=== PATIENT | female | born 1945 | race Caucasian/White ===

== ENCOUNTER 2019-07-28 15:31 | Outpatient (CLI) | payer MEDICARE, MEDICAID, SELFPAY ==
--- NOTE | 2019-07-28 15:45 | USCV_ITS ---
Yessi Ramirez Age: 73 Gender: F : 1945 Exam Date: 07/28/2019 16:11 Ordering Phys: Robert Kirk DPM Technologist: Dominique Rivers Exam Location: [facility] [place] Indication: PVD HISTORY: lower extremity pain PROCEDURES: Bilaterally, the common femoral, superficial femoral, profunda femoral, popliteal, posterior tibial, greater saphenous veins, and the peroneal trunk were identified and interrogated in the standard fashion. These veins were found to be easily compressible with spontaneous blood flow. FINDINGS: Negative for DVT and superficial thrombus in all vessels visualized. CONCLUSIONS No evidence of DVT in the above-mentioned identifiable veins. Dr Jared Bucio MD [facility] (Electronically Signed) Final Date: 28 July 2019 20:32 S
== END 2019-07-28 15:32 | disposition home or self-care (01) ==
LOC: US 15:37
PROVIDERS: Family Provider Family Medicine; PCP Family Medicine; Visit Provider Podiatrist Foot & Ankle Surgery
DX: I73.9 Peripheral vascular disease, unspecified (principal)
CPT/HCPCS: 93970

== ENCOUNTER 2019-08-01 15:12 | Outpatient (CLI) | payer MEDICARE, MEDICAID, SELFPAY ==
--- NOTE | 2019-08-01 15:15 | USCV_ITS ---
Yessi Ramirez Age: 73 Gender: F : 1945 Exam Date: 08/01/2019 15:10 Ordering Phys: Robert Kirk DPM Technologist: Hero Manzanares Exam Location: [facility] [place] Indication: PVD RIGHT LEFT Brachial 182.00 mmHg Brachial 176.00 mmHg Pressure (mmHg) Waveform Pressure (mmHg) Waveform 191.00 Below Knee 195.00 PHYSIOLOGIST 122.00 208.00 DPA 1.14 Ankle/Brachial Index 0.94 117.00 Pre-Exercise Toe Pressure 0.00 0.64 Pre-Exercise Toe/Brachial Index 0.00 FINDINGS Normal resting MEERA on the right side Near normal resting MEERA on the left side Slightly diminished resting TBI on the right side No Doppler flow signals in the left big toe CONCLUSIONS Features of mild peripheral artery disease possibly involving the distal vessels on the right side. Features of mild to moderate infrapopliteal disease with possible total occlusion of the digital artery to the big toe on the left side Dr Jared Bucio MD [facility] (Electronically Signed) Final Date: 02 August 2019 08:59 S
== END 2019-08-01 15:13 | disposition home or self-care (01) ==
LOC: US 15:14
PROVIDERS: Family Provider Family Medicine; PCP Family Medicine; Visit Provider Podiatrist Foot & Ankle Surgery
DX: I73.9 Peripheral vascular disease, unspecified (principal)
CPT/HCPCS: 93923

== ENCOUNTER → 2019-09-14 13:03 | Outpatient (BNVA) | payer MEDICARE, MEDICAID, SELFPAY | PROVIDERS: Family Provider Family Medicine; PCP Family Medicine; Visit Provider Specialist | DX: M17.0 Bilateral primary osteoarthritis of knee; E66.01 Morbid (severe) obesity due to excess calories; Z68.41 Body mass index [BMI] 40.0-44.9, adult; M25.561 Pain in right knee; M25.562 Pain in left knee | CPT/HCPCS: 73560; 73565 ==

== ENCOUNTER → 2020-05-03 11:42 | Outpatient (BNVA) | payer MEDICARE, MEDICAID, SELFPAY | PROVIDERS: Family Provider Family Medicine; PCP Family Medicine; Visit Provider Specialist | DX: M17.11 Unilateral primary osteoarthritis, right knee (principal); M17.12 Unilateral primary osteoarthritis, left knee | CPT/HCPCS: 73560; 73565 ==

== ENCOUNTER 2020-06-12 10:35 | Outpatient (CLI) | payer MEDICARE, MEDICAID, SELFPAY ==
--- NOTE | 2020-06-12 10:45 | ECG_ITS ---
[facility] Test Date: 2020-06-12 Pat Name: Yessi Ramirez Department: Room: Gender: Female Communication Professor: : 1945 Requested By: Arnie Whitehead Order Number: [id number] Ashely MD: Jared Bucio M.D. Measurements Intervals [place] Rate: 57 P: 25 VT: 194 QRS: -12 QRSD: 97 T: 53 QT: 416 QTc: 407 Interpretive Statements SINUS BRADYCARDIA No previous ECG available for comparison Electronically Signed On 06-13-2020 0:02:08 [employer]ING [employer]SULTANT by Jared Bucio M.D. [email or web address]
[2020-06-12 10:46] VITALS: BMI 38.3
[2020-06-12 10:48] LABS: Add Urine Microscopic? NO
[2020-06-12 11:04] LABS: Bilirubin Urine Neg (Negative); Blood Urine Neg (Negative); Glucose Urine UA Norm (Normal); Ketones Urine Negative (Negative); Leukocyte Esterase Urine Negative (Negative); Nitrate Urine Negative (Negative); Protein Urine Neg (Negative); Specific Gravity, Urine 1.005 (1.005-1.030); Sulfosalicylic Acid Urine Negative (Negative); Urine Appearance Clear (CLEAR); Urine Color Colorless (Yellow); Urobilinogen Urine Norm (Negative); pH Urine 8 (5-7)
[2020-06-12 11:26] LABS: Basophils % 0.4 %; Eosinophils # 0.1 10^3/uL (0.0-0.8); Eosinophils % 0.9 %; Hematocrit 45.6 % (37.0-47.0); Hemoglobin 14.3 g/dL (11.5-15.3); Lymphocytes # 2.2 10^3/uL (0.8-4.8); Mean Corpuscular HGB Conc 31.4 g/dL (30.0-36.0); Mean Corpuscular Hemoglobin 29.7 pg (28.0-34.0); Mean Corpuscular Volume 94.6 fL (81-99); Mean Platelet Volume 8.9 fL (7.4-10.4); Monocytes # 0.6 10^3/uL (0.2-0.9); Monocytes % 5.3 %; Neutrophils # 7.68 10^3/uL (1.8-7.7); Nucleated Red Blood Cells % 0 %; Platelet Count 420 10^3/cmm (130-400); Red Blood Count 4.82 10^6/uL (4.1-5.3); Red Cell Distribution Width 14.6 % (12.1-15.1); White Blood Count 10.7 10^3/uL (4.0-10.0)
[2020-06-12 11:56] LABS: Alanine Aminotransferase 16 U/L (0-33); Albumin Level 4.3 g/dL (3.5-5.2); Alkaline Phosphatase 119 IU/L (35-105); Anion Gap 13.2 (5-19); Aspartate Amino Transferase 17 U/L (0-32); Blood Urea Nitrogen 13 mg/dL (8-23); Calcium 9.8 mg/dL (8.5-10.5); Carbon Dioxide 30 mmol/L (22-29); Chloride 98 mmol/L (98-107); Globulin 3.7 g/dL (1.3-4.6); Glucose 154 mg/dL (65-115); Osmolality Calculated 287 mOsm/kg (285-295); Potassium 4.2 mmol/L (3.5-5.1); Sodium 137 mmol/L (136-145); Total Bilirubin 0.6 mg/dL (0.15-1.2)
--- NOTE | 2020-06-12 13:16 | P.ANESASSM_ITS ---
Pre-Anesthetic Assessment Pre-Anesthetic Assessment: Height/Weight: Height 1.5 m Weight 86.183 kg Proposed Procedure: Operation Date: 06/19/20 07:00 Proposed Procedures p left Total Knee Arthroplasty 89670 m17.10(Left) - Izzy Beltran MD Was Beta Venessa taken within 24 hours: N/A Social: Social History: No alcohol and No tobacco Airway: Submandibular: WNL Cervical ROM: WNL MP: 2 Dentition: False Pulmonary: Pulmonary: Asthma CV/HEM: CV/HEM: HTN : : None reported Hepatic: Hepatic: None reported GI: GI: None reported Metabolic: Metabolic: DM and Morbid obesity Musc/skel: Musc/skel: Fibromyalgia and OA/DJD Neuropsych: Neuropsych: None reported Anesthetic Plan: ASA status: 3 Anesthesia: Regional (specify below) Other: SAB and adductor blk Risk of > 500 ml blood loss (7ml/kg in children): No PFSH Anesthesia PFSH: Medical History Diabetes mellitus Hx of carpal tunnel syndrome Long-term current use of opiate analgesic Pain management contract signed Family History Brother Diabetes Other Cancer Denies family history of Stroke Social History Smoking and tobacco status: never smoked Alcohol intake: never Household members: other Details: Roomate Marital status: Single Current occupational status: disabled Data Anesthesia CBC & Chem 7: 06/12/20 11:15 06/12/20 11:15 Other Labs: Laboratory Results - last 48 hr 06/12/20 06/12/20 06/12/20 10:45 11:15 11:15 WBC 10.7 H RBC 4.82 Hgb 14.3 Hct 45.6 MCV 94.6 MCH 29.7 MCHC 31.4 RDW 14.6 Plt Count 420 H MPV 8.9 Neut % (Auto) 72.0 Lymph % (Auto) 21.0 Hayes % (Auto) 5.3 Eos % (Auto) 0.9 Baso % (Auto) 0.4 Neut # (Auto) 7.68 Lymph # (Auto) 2.2 Hayes # (Auto) 0.6 Eos # (Auto) 0.1 Baso # (Auto) 0.0 Nucleated RBC % (auto) 0 Nucleated RBCs # 0.0 Sodium 137 Potassium 4.2 Chloride 98 Carbon Dioxide 30 H Anion Gap 13.2 BUN 13 Creatinine 0.5 GFR Calculation Not Reportable Glucose 154 H Calculated Osmolality 287 Calcium 9.8 Total Bilirubin 0.6 AST 17 ALT 16 Alkaline Phosphatase 119 H Total Protein 8.0 Albumin 4.3 Globulin 3.7 Urine Color Colorless Urine Appearance Clear Urine pH 8 H Ur Specific [place] 1.005 Urine Protein Neg Urine Glucose (UA) Norm Urine Ketones Negative Urine Blood Neg Urine Nitrate Negative Urine Bilirubin Neg Prot Sulfosalicylic Acd Negative Urine Urobilinogen Norm Ur Leukocyte Esterase Negative Cardiac Studies: No Data to Display
== END 2020-06-12 10:36 | disposition home or self-care (01) ==
LOC: OPS 03-27 14:52
PROVIDERS: PCP Family Medicine; Visit Provider Specialist
DX: Z01.818 Encounter for other preprocedural examination (principal)
CPT/HCPCS: 36415; 80053; 81003; 85025; 93005

== ENCOUNTER → 2020-10-01 14:38 | Outpatient (BNVA) | payer MEDICARE, MEDICAID, SELFPAY | PROVIDERS: PCP Family Medicine; Visit Provider Specialist | DX: M17.12 Unilateral primary osteoarthritis, left knee (principal); M17.11 Unilateral primary osteoarthritis, right knee | CPT/HCPCS: 73560; 73565 ==

== ENCOUNTER → 2020-10-04 14:57 | Outpatient (BNVA) | payer MEDICARE, MEDICAID, SELFPAY | PROVIDERS: PCP Family Medicine; Visit Provider Specialist | DX: Z01.812 Encounter for preprocedural laboratory examination (principal); Z20.822 Contact with and (suspected) exposure to COVID-19 | CPT/HCPCS: 87635 ==

== ENCOUNTER → 2020-10-29 12:02 | Outpatient (BNVA) | payer MEDICARE, MEDICAID, SELFPAY | PROVIDERS: PCP Family Medicine; Visit Provider Specialist | DX: Z01.812 Encounter for preprocedural laboratory examination (principal); Z20.822 Contact with and (suspected) exposure to COVID-19 | CPT/HCPCS: 87635 ==

== ENCOUNTER → 2020-11-09 15:07 | Outpatient (BNVA) | payer MEDICARE, MEDICAID, SELFPAY | PROVIDERS: PCP Family Medicine; Visit Provider Specialist | DX: Z01.812 Encounter for preprocedural laboratory examination (principal); Z20.822 Contact with and (suspected) exposure to COVID-19 | CPT/HCPCS: 87635 ==

== ENCOUNTER 2020-11-13 13:47 | Inpatient (IN) | payer MEDICAID, SELFPAY ==
[2020-11-05 11:54] VITALS: BMI 39.6
[2020-11-05 12:26] LABS: Add Urine Microscopic? NO; Charge for UA Resulting for Rev
--- NOTE | 2020-11-05 12:26 | ANES.PREANE2 ---
Pre-Anesthetic Assessment Pre-Anesthetic Assessment: Height/Weight: Height 1.5 m Weight 88.904 kg Preop Diagnosis: Left Knee degenerative osteoarthritis Proposed Procedure: Operation Date: 11/13/20 10:25 Proposed Procedures p Total Knee Arthroplasty 72116 M17.10(Left) - Izzy Beltran MD Familial anesthetic complications: None Social: Social History: No alcohol and No tobacco Exam: Pre-Anes Outpt Exam: alert, oriented x 3, clear to auscultation bilaterally and regular rate & rhythm Airway: Cervical ROM: WNL MP: 2 Dentition: Full Pulmonary: Pulmonary: None reported CV/HEM: CV/HEM: HTN GI: GI: GERD Metabolic: Metabolic: DM and Morbid obesity Musc/skel: Musc/skel: Lower Back Pain Anesthetic Plan: Anesthesia: Regional (specify below) (adductor) Other: spinal Risk of > 500 ml blood loss (7ml/kg in children): Yes, adequate IV access and fluids planned PFSH Anesthesia PFSH: Medical History Diabetes mellitus Hx of carpal tunnel syndrome Long-term current use of opiate analgesic Pain management contract signed Family History Brother Diabetes Other Cancer Denies family history of Stroke Social History Smoking and tobacco status: never smoked Alcohol intake: never Household members: other Details: Roomate Marital status: Single Current occupational status: disabled Data Anesthesia CBC & Chem 7: 11/05/20 12:15 11/05/20 12:15 Cardiac Studies: No Data to Display
[2020-11-05 12:28] LABS: Basophils % 0.4 %; Eosinophils # 0.1 10^3/uL (0.0-0.8); Eosinophils % 0.7 %; Hematocrit 43.9 % (37.0-47.0); Hemoglobin 13.8 g/dL (11.5-15.3); Lymphocytes # 2.2 10^3/uL (0.8-4.8); Lymphocytes % 21.8 %; Mean Corpuscular HGB Conc 31.4 g/dL (30.0-36.0); Mean Corpuscular Hemoglobin 29.5 pg (28.0-34.0); Mean Corpuscular Volume 93.8 fL (81-99); Mean Platelet Volume 9.4 fL (7.4-10.4); Monocytes # 0.6 10^3/uL (0.2-0.9); Monocytes % 5.6 %; Neutrophils # 7.17 10^3/uL (1.8-7.7); Neutrophils % 71.3 %; Nucleated Red Blood Cells % 0 %; Platelet Count 398 10^3/cmm (130-400); Red Blood Count 4.68 10^6/uL (4.1-5.3); Red Cell Distribution Width 13.9 % (12.1-15.1); White Blood Count 10.1 10^3/uL (4.0-10.0)
[2020-11-05 12:31] LABS: Bilirubin Urine Neg (Negative); Blood Urine Neg (Negative); Glucose Urine UA Norm (Normal); Ketones Urine Negative (Negative); Leukocyte Esterase Urine Negative (Negative); Nitrate Urine Negative (Negative); Protein Urine Neg (Negative); Specific Gravity, Urine 1.005 (1.005-1.030); Urine Appearance Clear (CLEAR); Urine Color Yellow (Yellow); Urobilinogen Urine Norm (Negative); pH Urine 7 (5-7)
[2020-11-05 12:46] LABS: Alanine Aminotransferase 12 U/L (0-33); Albumin Level 3.9 g/dL (3.5-5.2); Alkaline Phosphatase 97 IU/L (35-105); Aspartate Amino Transferase 16 U/L (0-32); Blood Urea Nitrogen 10 mg/dL (8-23); Carbon Dioxide 29 mmol/L (22-29); Chloride 99 mmol/L (98-107); Globulin 3.7 g/dL (1.3-4.6); Glucose 126 mg/dL (65-115); Osmolality Calculated 287 mOsm/kg (285-295); Sodium 138 mmol/L (136-145); Total Bilirubin 0.6 mg/dL (0.15-1.2); Total Protein 7.6 g/dL (6.6-8.7)
[2020-11-05 12:49] LABS: Anion Gap 13.6 (5-19); Potassium 3.6 mmol/L (3.5-5.1)
[2020-11-13] VITALS (18 sets, daily range): BP systolic 96–173; BP diastolic 47–94; PULSE 52–73; RESP 16–20; TEMP 35.9–37.2; O2SAT 94–100
[2020-11-13] MEDS: sodium chloride 0.9% 1,000 ML 30 ML IV (09:20)
[2020-11-13] MEDS: acetaminophen 1,000 MG/100 ML PIGGYBACK 400 MG IV ×2 (09:20→17:29)
[2020-11-13] MEDS: ketorolac 30 mg/mL INJ IVP (09:26)
[2020-11-13 09:28] LABS: Glucose Point of Care 110 mg/dL (70-110)
--- NOTE | 2020-11-13 09:32 | W.PM.OPSUD ---
Surgery/Procedure H&P Update DATE OF PROCEDURE: November 13, 2020 DATE H&P PERFORMED: 11/05/20 H&P UPDATE INFORMATION: I have reviewed H&P completed within last 30 days, I have examined patient prior to procedure, No changes to prior documentation, Changes to prior documentation as noted here and H&P is in [facility] EMR on date indicated PREOP DIAGNOSIS: Left Knee degenerative osteoarthritis PLANNED PROCEDURE: Operation Date: 11/13/20 10:25 Proposed Procedures p Total Knee Arthroplasty 92574 M17.10(Left) - Izzy Beltran MD Related Problem List Diagnoses (1) Primary osteoarthritis of left knee:
--- NOTE | 2020-11-13 10:40 | P.ANESUD_ITS ---
Pre-Anesthetic Update Pre-Anesthetic Assessment: Date of Surgery/Procedure: 11/13/20 Preop Alley gnosis: Left Knee degenerative osteoarthritis Proposed Procedure: Operation Date: 11/13/20 10:25 Proposed Procedures p Total Knee Arthroplasty 53446 M17.10(Left) - Izzy Beltran MD Any changes to Pre-Anesthetic Assessment?: No Last Intake: Intake Last Liquid Date 11/13/20 Last Liquid Time 06:00 Last Solid Date 11/12/20 Last Solid Time 22:00 Labs Last 48hrs: Laboratory Results - last 48 hr 11/13/20 09:21 POC Glucose 110 Vitals: Temperature 97.5 F L 11/13/20 09:13 Temperature Source Temporal Artery S can 11/13/20 09:13 Pulse Rate 65 11/13/20 09:13 Pulse Rhythm 11/13/20 09:13 Pulse Strength 3+ Normal 11/13/20 09:13 Respiratory Rate 18 11/13/20 09:13 Blood Pressure 173/94 11/13/20 09:13 Blood Pressure Helga n 120 11/13/20 09:13 Pulse Oximetry 100 11/13/20 09:13 Oxygen Delivery Me thod 11/13/20 09:13 Exam: Pre-Anes Outpt Exam: alert, oriented x 3, clear to auscultation bilaterally and regular rate & rhythm Cardiac Studies: No Data to Display
[2020-11-13] MEDS: vancomycin 1,000 MG SDV 1000 MG XX (12:18)
[2020-11-13] MEDS: ceFAZolin 1,000 mg SDV 2000 MG IRRIGATION (12:19)
--- NOTE | 2020-11-13 12:41 | ANES.PROC ---
Anesthesia Procedures Procedure/Date: 11/13/20 Nerve Block ^: Nerve Block 1: Main Anesthesia: spinal anesthesia block Time Out Performed: Yes Consent: requested by attending/covering physician, from patient, risks and benefits reviewed and patient agrees to proceed Nerve block location: adductor canal (left) Anesthesia monitors applied: pulse oximetry, EKG, BP cuff and oxygen Nerve block position: supine Anesthetic Used: ropivicaine 0.5% Amount of anesthesia used (mL): 20 Ultrasound used to: recognize landmarks Nerve Stimulator Used?: No Interscalene/Femoral BLK: 4 stimuplex 21 g needle used for position and inplane approach Injection: neg aspiration of heme Patient Tolerated Procedure: well Complications: none
--- NOTE | 2020-11-13 13:57 | XRR_ITS ---
PROCEDURE INFORMATION: Exam: XR Left Knee Exam date and time: 11/13/2020 1:59 PM Age: 75 years old Clinical indication: Device placement; Joint replacement hardware; Prior surgery; Surgery date: Post-operative (0-2 days); Additional info: Status post left total knee TECHNIQUE: Imaging protocol: XR Left knee. Views: 1 or 2 views. COMPARISON: CR XR knees AP WB w BI lmt ORTH 10/01/2020 2:45 PM FINDINGS: Bones/joints: Recent total knee replacement with a vertical row skin carole. Soft tissues: Normal. Other findings: Postoperative air. XR/XR knee LT 1-2V 96286 IMPRESSION: Recent total knee replacement with a vertical row skin carole.
--- NOTE | 2020-11-13 13:59 | PM.OP ---
Operative Report Date of procedure: November 13, 2020 Pre-op Diagnosis: Left Knee degenerative osteoarthritis Post-op diagnosis: same Post-op Findings: Severe valgus deformity left knee with gross instability. Procedure Done: Left total knee arthroplasty Implants: The Nadine total knee system with a size 2 triathlon beaded posterior stabilized femur left, a triathlon titanium tibial component size 2 beaded, a triathlon X3 posterior stabilized tibial bearing insert size 2 X 11 mm and a beaded triathlon titanium asymmetric patella size 29 x 9 mm Specimens removed/disposition: None Pathology: none sent Surgeon: Izzy Beltran Chief Librarian Music Department: [facility] operating room technicians Anesthesia: MAC (With spinal and supplemental regional block, ASA 3) Estimated blood loss (mL): 50 Tourniquet time (min): 84 Tourniquet time: At 300 mmHg IV fluids (mL): 1,000 Urine output (mL): 450 Complications: None Findings: Gross instability left knee secondary to severe valgus deformity, obesity, and opposite knee with instability and valgus deformity Condition: stable Disposition: PACU (Then to floor for postoperative rehabilitation and pain management. The patient will require inpatient status) Brief History: This 75-year-old woman presents with complaints of bilateral knee pain with severe valgus deformity of bilateral knees. Additionally, she has multiple medical comorbidities including cardiac, chronic pain, and diabetes. She is obese with a BMI of 39.6%. She does suffer with deconditioning secondary to her multiple medical issues. Patient is here today for left total knee arthroplasty. At some point in the near future, she will likely require right total knee arthroplasty as she will have potential balance issues and difficulties ambulating secondary to the severe deformity in her right knee. Due to her multiple medical comorbidities, the patient will likely require nursing home on discharge and inpatient monitoring by the medical service. They were contacted following the surgical procedure. Procedure: The patient was brought to the operating theater, and after undergoing adequate spinal anesthesia with MAC and supplemented with regional block, ASA 3, the left lower extremity was prepped with Dura-Prep and draped in usual fashion following placement of a tourniquet high on the leg. The leg was then draped free. Following prepping and draping, the leg was exsanguinated, and the tourniquet was elevated to 300 mmHg for a total tourniquet time of 84 minutes. Prior to elevation of the tourniquet, but following exposure of the site of surgery, a surgical pause was performed. At the time of the surgical pause, we confirmed the site and side of surgery. Additionally, we confirmed the appropriate and timely administration of preoperative antibiotics, Ancef g. and Transexemic acid 1 g. The availability of equipment was confirmed, and the patient's identity was verbalized as well. Following the surgical pause, an exam under anesthesia demonstrated significant instability to the left knee secondary to gross valgus deformity. An incision was made centering over the patella continuing proximally and distally as necessary to allow access to the knee joint. Dissection continued through skin and soft tissues using a scalpel. Hemostasis was obtained using electrocautery. The skin incision was followed by a median parapatellar arthrotomy. The leg was extended and the patella was everted. Following this, the leg was returned to flexed position. Synovectomy was performed. There were also noted to be large osteophytes surrounding the entire distal femur. The distal femur was exposed, and a drill hole was made in this for placement of the distal femoral jig. The distal femoral jig was set at 5? of valgus. The distal femoral cutting block was then placed in appropriate position, and an carlin wing was used to confirm an appropriate amount of distal femur would be resected. The distal femoral resection was accomplished with 8 mm of bone being resected distally. After the distal femoral resection had been accomplished, the femur was measured and it measured a size 2. Medial lateral dimension also measured a size 2. A size 2 femoral cutting block was placed in position, and we were then able to accomplish the anterior, posterior and chamfer cuts. This jig was then removed and the notch guide was placed in position. With the notch guide in appropriate position, the notch was excised including resection of the anterior and posterior cruciate ligaments. This notch was to allow for the posterior stabilized femoral component. At this point, the femur was prepared and attention was directed to the proximal tibia. The posterior knee retractor was placed along with medial and lateral retractors. Further resection of the menisci was accomplished as we had better visualization. A complete meniscectomy was performed both medially and laterally with care being taken to protect the popliteus. Retractors were then placed so that the proximal tibia was well visualized. A drill hole was then made in the tibia for placement of the intramedullary guide. This guide was placed so that approximately 2 mm of bone would be resected from the deficient lateral tibial plateau. The intramedullary guide was utilized supplemented with an extramedullary guide to assure appropriate alignment for the proximal tibial resection. The proximal tibial jig was then evaluated, pinned in position, and the proximal tibial resection was accomplished without difficulty. The jig was removed, and the proximal tibia was measured. It measured a size 2. We then attempted a trial reduction with a size 2 by 9 mm insert. Osteophytes were also removed from the tibia. The femoral component was placed in position for the trial reduction, and the knee was placed through range of motion. With this, there was appropriate patellar tracking. Extension was noted to be full as well. After the knee was manipulated following the medial release, we were able to insert a size 2 x 11 mm insert. With this we had excellent varus valgus alignment and full extension. The knee was stable to varus valgus stress as well. Therefore, this was the chosen component. There was full extension and flexion without lift off and the rotation of the tibia was marked. Alignment was checked from the hip to the ankle, and this was noted to be appropriate as well. Attention was then directed to the patella which was very thin. The patella was measured with a caliper. We resected minimal patella so that we had a surface upon which to place the prosthesis, but we did not thin the patella significantly. Measurements of the patella then indicated that a size asymmetric 29 mm x 9 mm was the appropriate patellar size. We then placed the jig to drill for the 3 pegs of the press-fit patella, and these drill holes were made without incident. A trial patella was then placed, and the knee was placed through range of motion. The patella was noted to track nicely without evidence of subluxation. The femur was prepared for a press-fit femur by drilling 2 holes for the femoral pegs. All trial components were subsequently removed. The tibial tray was then pinned into position, and we broached the tibia for the stem of the tibial component. Subsequently, 4 drill holes were made for placement of the press-fit tibia. This was accomplished without difficulty. Care was taken to assure appropriate rotation of the tibia as well as appropriate position on the proximal tibia. The tibial tray was completely seated on the proximal tibia. Following broaching, the tibial guide was removed, and all surfaces were copiously irrigated. The surfaces were then dried and a bone plug was placed into the distal femur. Exparel was also injected at this point. The Tritanium tibia was impacted into position. The beaded femur was then impacted into position in a cementless fashion. The tibial insert was placed. The patella was pressed into position with a patellar clamp. The knee was irrigated with 20 mL of Betadine and 500 mL of normal saline, and this was allowed to remain in the knee for 3-4 minutes. The knee was then copiously irrigated and suctioned dry. Attention was then directed to closure. Closure was accomplished with 0 Vicryl in the fascial tissues. Following this, a combination of 0 Vicryl and 2-0 Monocryl was used in the subcutaneous tissues, and the skin was closed with skin carole. A sterile dressing was then placed consisting of Dermabond Prineo, Telfa, 4x4's, sterile soft roll, and an Eduardo wrap. The patient was returned the Recovery Room in a satisfactory condition. X-rays were obtained there. The patient will be discharged to the floor for postoperative rehabilitation and pain management. Associated Problem List Diagnoses (1) Primary osteoarthritis of left knee:
--- NOTE | 2020-11-13 14:50 | PC.NURSE ---
OR NOTE UP VIA BED WITH POLO RN AT SIDE - ALERT AND ORIENTATED - AP RRR - LUNGS CTA THROUGHOUT - ABD SOFT WITH NO DISTENTION BS + - SANDOVAL IN PLACE AND PATENT WITH CLEAR YELLOW URINE - IV PATENT VIA PUMP TO RIGHT FA - TAJ TO LEFT KNEE C/D/I WITH NO REDNESS OR DRAINAGE NOTED - PPP - CALL LIGHT WITHIN REACH - ORIENTATION TO ROOM PROVIDED PER THIS NURSE
--- NOTE | 2020-11-13 16:31 | P.CONIM_ITS ---
Providers/Reason For Consult Consulting Physician/Specialty*: orthopedic Reason for Consult*: left knee replacment, medical managament Attending Physician: Izzy Beltran MD Primary Care Provider: Kee Sanabria History of Present Illness History of Present Illness Yessi Ramirez is a 75 year old female with past medical history of iyx-szwyvnp-mayombirt type 2 diabetes mellitus, hypertension, hyperlipidemia, GERD, restless leg syndrome, who presents to [facility] for a new l eft knee replacement by Dr. Beltran. Hospitalist team was consulted due to medical management of her chronic medical problems. Patient tells me that she has type 2 diabetes mellitus, well controlled, blood pressures well controlled. No history of CAD, history of chest pain, shortness of breath. No history of smoking, history of COPD. No history of fevers, no chills, no history of pneumonia. No known exposure to COVID-19. She does tell me that she has frequent falls, which is more the reason she is having her left knee replacement, as her left knee would give out. No history of strokes. She tells me that currently she has no one to take care of her at home, her has a foot fracture. and her family friend who helps out with her is currently going on vacation Review of Systems Const: Denies: fever(s) ENMT: Denies: nasal congestion Resp: Denies: dyspnea GI: Denies: abdominal pain, nausea, vomiting, diarrhea or constipation : Denies: dysuria or urinary frequency Neuro: Denies: headache(s) Meds/Allergies Home Medications and Allergies Home Medications Medication Instructions Recorded Confirmed Last Taken Type benazepril 5 mg tablet 5 mg PO QDAY 07/12/19 11/13/20 11/13/20 06:00 History duloxetine 20 mg capsule,delayed 20 mg PO BID 07/12/19 11/13/20 11/13/20 06:00 History release sprinkle ezetimibe 10 mg tablet 10 mg PO QDAY 07/12/19 11/13/20 11/13/20 History hydrochlorothiazide 12.5 mg capsule 12.5 mg PO QAM 07/12/19 11/13/20 11/13/20 09:00 History metformin 500 mg tablet 500 mg PO BID 07/12/19 11/13/20 11/12/20 History montelukast 10 mg tablet 10 mg PO QDAY 07/12/19 11/13/20 11/13/20 06:00 History ropinirole 5 mg tablet 5 mg PO QDAY 07/12/19 11/13/20 11/13/20 History tizanidine 2 mg capsule 2 mg PO BID PRN 07/12/19 11/13/20 11/13/20 History gabapentin 300 mg capsule 600 mg PO TID cap 03/20/20 11/13/20 11/13/20 06:00 History Allergies Allergy/AdvReac Type Severity Reaction Status Date / Time diltiazem AdvReac swelling Verified 11/05/20 11:44 feet duloxetine [From Cymbalta] AdvReac HEADACHE / Verified 11/05/20 11:44 ITCHING fluticasone AdvReac CLOSED Verified 11/05/20 11:44 [From Advair Diskus] OFF HER LUNGS salmeterol AdvReac CLOSED Verified 11/05/20 11:44 [From Advair Diskus] OFF HER LUNGS Current Medications Current Medications Generic Name Dose Route Start Last Admin Trade Name Cristina PRN Reason Stop Dose Admin Mupirocin 1 applic 11/13/20 18:00 11/13/20 16:09 Mupirocin Oint 22 Gm NASAL 11/18/20 17:59 Not Given BID [facility] Protocol PFSH Acute PFSH: Medical History (Updated 11/13/20 @ 16:36 by Jonathan Murray MD) Diabetes mellitus Hx of carpal tunnel syndrome Long-term current use of opiate analgesic Pain management contract signed Family History Brother Diabetes Other Cancer Denies family history of Stroke Social History Smoking and tobacco status: never smoked Alcohol intake: never Household members: other Details: Roomate Marital status: Single Current occupational status: disabled Vitals/I&O/Wt Last Vital Signs Temp 97.7 F 11/13/20 15:30 Pulse 60 11/13/20 15:49 Resp 18 11/13/20 15:49 BP 146/66 11/13/20 15:30 Pulse Ox 99 11/13/20 15:49 06/01/21 06/01/21 06/01/21 06:59 14:59 22:59 Intake Total 150 / 150 Output Total 950 / 950 Balance -800 / -800 Physical Exam Const: COMMON NORMALS: no acute distress ORIENTATION/CONSCIOUSNESS: Yes awake, Yes oriented to person, Yes oriented to place and Yes oriented to time Resp: COMMON NORMALS: normal respiratory effort, No retractions, No use of accessory muscles and clear to auscultation bilaterally AUSCULTATION: clear to auscultation bilaterally Cardio: COMMON NORMALS: regular rate, regular rhythm, S1 normal heart sound present and S2 normal heart sound present RATE: regular rate RHYTHM: regular rhythm HEART SOUNDS: S1 normal heart sound present and S2 normal heart sound present GI: COMMON NORMALS: Normal to inspection, nondistended, normoactive bowel sounds present, Soft to palpation and non-tender PALPATION: Yes Soft to palpation : OTHER: martínez in place Extremity: COMMON NORMALS: no pedal edema NARRATIVE EXTREMITY EXAM: LLE at knee is wrapped Neuro: SENSORIUM/ORIENTATION: Yes oriented to person, Yes oriented to place and Yes oriented to time Urinary Catheter Management^: F: Cath Placed During This Visit: yes Urinary Catheter Date of Insertion: 11/13/20 Urinary Catheter Time of Insertion: 11:50 A&P Assessment and plan (1) Primary osteoarthritis of left knee: -Status post left knee arthroplasty -Pain control and anticoagulation as per orthopedic service -Martínez catheter in place -Advance diet as tolerated -Low-dose sliding scale for type 2 diabetes mellitus -Monitor blood pressures -Monitor for postoperative anemia, monitor for confusion, monitor for fevers -aspirin 325mg -full code Status: Acute (2) Obesity (BMI 35.0-39.9 without comorbidity): Status: Acute (3) Diabetes mellitus: Status: Acute (4) HTN (hypertension) with goal to be determined: Status: Acute Coding Level of Care Code Acute Pre Sales Technical Consultant for [facility] Fwd Diagnoses Primary osteoarthritis of left knee M17.12 Obesity (BMI 35.0-39.9 without comorbidity) E66.9 Diabetes mellitus E11.9 HTN (hypertension) with goal to be determined I10
--- NOTE | 2020-11-13 16:56 | ANE.PACU2 ---
Inpatient post-anesthesia follow up: Airway intact: Yes Vital signs: Temperature 97.7 F Pulse Rate 60 Respiratory Rate 18 Blood Pressure 146/66 Pulse Oximetry 99 Oxygen Delivery Me thod Room Air Oxygen Flow Rate Fraction of Inspir ed Oxygen Hydration adequate: Yes Nausea and vomiting: No Pain level: 2 Mental status: Baseline
[2020-11-13] MEDS: gabapentin 300 mg Capsule 600 MG PO ×2 (17:27→22:05)
[2020-11-13] MEDS: CELEcoxib 200 mg Capsule PO (17:27)
[2020-11-13] MEDS: sennosides-docusate Tablet 2 TAB PO (17:27)
[2020-11-13] MEDS: calcium carbonate 500 mg Chew Tablet 1000 MG PO (17:28)
[2020-11-13] MEDS: chlorhexidine gluconate 0.12% Btl 473 mL 30 ML MUCOUS MEM ×2 (17:28→22:06)
[2020-11-13 17:32] LABS: Glucose Point of Care 111 mg/dL (70-110)
[2020-11-13] MEDS: iron polysaccharide complex 150 mg Capsule PO (17:35)
[2020-11-13] MEDS: duloxetine 20 mg Capsule PO (18:05)
[2020-11-13] MEDS: oxyCODONE 5 mg IR Tab/Cap PO (18:52)
[2020-11-13 20:50] LABS: Glucose Point of Care 164 mg/dL (70-110)
[2020-11-14] VITALS (9 sets, daily range): BP systolic 120–167; BP diastolic 65–81; PULSE 70–96; RESP 16–18; TEMP 36.6–37.5; O2SAT 94–96
[2020-11-14] MEDS: acetaminophen 1,000 MG/100 ML PIGGYBACK 400 MG IV (00:34)
[2020-11-14 02:42] LABS: Basophils % 0.3 %; Eosinophils # 0.1 10^3/uL (0.0-0.8); Hematocrit 33.2 % (37.0-47.0); Hemoglobin 10.5 g/dL (11.5-15.3); Lymphocytes # 1.2 10^3/uL (0.8-4.8); Lymphocytes % 11.8 %; Mean Corpuscular HGB Conc 31.6 g/dL (30.0-36.0); Mean Corpuscular Hemoglobin 29.2 pg (28.0-34.0); Mean Corpuscular Volume 92.2 fL (81-99); Mean Platelet Volume 9.5 fL (7.4-10.4); Monocytes # 0.6 10^3/uL (0.2-0.9); Monocytes % 6.1 %; Neutrophils # 8.07 10^3/uL (1.8-7.7); Neutrophils % 80.4 %; Nucleated Red Blood Cells % 0 %; Platelet Count 299 10^3/cmm (130-400); Red Cell Distribution Width 13.7 % (12.1-15.1)
[2020-11-14 03:06] LABS: Anion Gap 12.1 (5-19); Blood Urea Nitrogen 14 mg/dL (8-23); Calcium 8.5 mg/dL (8.5-10.5); Carbon Dioxide 26 mmol/L (22-29); Chloride 102 mmol/L (98-107); Glucose 167 mg/dL (65-115); Osmolality Calculated 288 mOsm/kg (285-295); Potassium 3.1 mmol/L (3.5-5.1); Sodium 137 mmol/L (136-145)
[2020-11-14] MEDS: oxyCODONE 5 mg IR Tab/Cap PO ×3 (03:10→14:41)
[2020-11-14] MEDS: hydroCHLOROthiazide 25 mg Tablet 12.5 MG PO (06:11)
[2020-11-14] MEDS: CELEcoxib 200 mg Capsule PO ×2 (06:11→18:16)
[2020-11-14 06:54] LABS: Glucose Point of Care 173 mg/dL (70-110)
[2020-11-14] MEDS: calcium carbonate 500 mg Chew Tablet 1000 MG PO ×2 (08:01→18:39)
[2020-11-14] MEDS: iron polysaccharide complex 150 mg Capsule PO ×2 (08:01→18:16)
[2020-11-14] MEDS: sennosides-docusate Tablet 2 TAB PO ×2 (08:01→18:16)
[2020-11-14] MEDS: ezetimibe 10 mg Tablet PO (08:01)
[2020-11-14] MEDS: montelukast sodium 10 mg Tablet PO (08:01)
[2020-11-14] MEDS: gabapentin 300 mg Capsule 600 MG PO ×3 (08:02→20:59)
[2020-11-14] MEDS: duloxetine 20 mg Capsule PO ×2 (08:02→18:39)
[2020-11-14] MEDS: lisinopril 5 mg Tablet PO (08:02)
[2020-11-14] MEDS: cholecalciferol (vitamin D3) 1,000 unit Tablet 1000 UNIT PO (08:02)
[2020-11-14] MEDS: multivitamin therapeutic Tablet 1 TAB PO (08:02)
[2020-11-14] MEDS: aspirin 325 mg EC Tablet PO (08:02)
[2020-11-14] MEDS: chlorhexidine gluconate 0.12% Btl 473 mL 30 ML MUCOUS MEM ×4 (08:03→21:01)
[2020-11-14] MEDS: acetaminophen 1,000 MG/100 ML PIGGYBACK 100 MG IV (08:03)
--- NOTE | 2020-11-14 10:22 | PC.CHAP ---
Pastoral Care Encounter/Spiritual Assessment Type of Contact [] Declined furnace erector visit [] Patient/Family/Request visit [] Outpatient visit [] Follow-up visit [] Physician referral [] Code/Alert [x] Routine visit [] Staff referral [] Actively dying [] Patient sleeping [] Family support [] [] Out of room [] Palliative care [] [] Receiving care in room [] Pre-surgical visit [] Trauma [] Long length of stay [] ICU visit [] Other: Relational/Emotional Strength [x] Patient feels connected with others/family/visitors/staff [] Distress [] Loneliness/isolation [] Abandonment Spirituality of Patient [x] Person of Lakisha x [] Attends Faith of their Lakisha [] Believes in Prayer [] Reads Bible or Mandaen materials [] There are Spiritual issues to be addressed Industrial Psychologist Interventions [x] Prayer [x] Active listening [x] Non-anxious presence [] Spiritual/emotional support [] Crisis/trauma care [] Spiritual counseling [] Bereavement support [] Provided bereavement packet [] Provided Bible/devotional materials [] Provided toy/stuffed animal, coloring book to patient or family member [] Provided Communion [] Anointing/Lithia [] Salvation [] Completed spiritual assessment [] Other: Impact on Illness or Injury [] Angry [] Fearful [] Anxious [] Often cries [] Exhaustion [] Unable to work [] Unable to attend yazdanism [] Unable to walk/stand [] Unable to read [] Unable to drive [] Unable to eat/drink [] Unable to sleep [] Unable to be with family [] Patient intubated [] Other: Summary Time spent with patient 10 min
[2020-11-14] MEDS: potassium chloride ER 20 mEq Tablet 40 MEQ PO (11:05)
--- NOTE | 2020-11-14 14:21 | P.PN_ITS ---
Subjective Subjective: Interval history: Patient was seen this morning, martínez is out, she is still having left knee pain, no fever, no chills, no nausea, no vomiting. She considered going home, however, she does have deconditioning and weakness of the upper extremities which limit her ability to participate with physical therapy. Also, family has confirmed that they will not be available to assist her at home. Medications: Reviewed: Yes Vitals/I&O/Wt Last Vital Signs Temp 97.8 F 11/14/20 11:05 Pulse 82 11/14/20 11:05 Resp 16 11/14/20 11:05 BP 167/80 11/14/20 11:05 Pulse Ox 95 11/14/20 11:05 11/13/20 11/14/20 11/14/20 22:59 06:59 14:59 Intake Total 2210 / 2360 630 / 2990 120 / 120 Output Total 2100 / 3050 850 / 3900 Balance 110 / -690 -220 / -910 120 / 120 Physical Exam Const: COMMON NORMALS: no acute distress, average body habitus, patient oriented x3 and alert GENERAL APPEARANCE: cooperative and comfortable ORIENTATION/CONSCIOUSNESS: Yes awake HENMT: COMMON NORMALS: normocephalic and atraumatic HEAD & SCALP: no rmocephalic and atraumatic Eye: GENERAL EYE: appearance normal, both eyes and all related structures Chest: COMMONS NORMALS: normal inspection of the chest Resp: COMMON NORMALS: normal respiratory effort EFFORT & INSPECTION: Yes able to speak in complete sentences and Yes symmetric chest movement Extremity: LEFT LOWER EXTREMITY: Yes knee joint (Dressing is removed, wound is benign.) Left knee: Yes inspection (There is no drainage or evidence of infection.), Yes palpation (Minimal tenderness to palpation.), Yes ROM (Not evaluated.) and Yes neurovascular exam (Intact with no evidence of DVT.) Neuro: COMMON NORMALS: patient oriented x3 SENSORIUM/ORIENTATION: Yes alert Psych: COMMON NORMALS: mental status grossly normal APPEARANCE: Yes grossly normal ATTITUDE: Yes calm and Yes engaged ATTENTION/CONCENTRATION: Yes attention grossly intact Skin: COMMON NORMALS: no rashes or lesions noted GENERAL SKIN EXAM: no rashes or lesions noted Urinary Catheter Management^: F: Cath Placed During This Visit: yes, but has since been removed by the nurse Reason for Continuing Indwelling Catheter: Decision to DC Catheter Urinary Catheter Date of Insertion: 11/13/20 Urinary Catheter Time of Insertion: 11:50 Date Urinary Catheter Removed: 11/14/20 Time Urinary Catheter Discontinued: 06:10 Data : 11/14/20 02:17 11/14/20 02:17 A&P Assessment and plan (1) Primary osteoarthritis of left knee: This 75-year-old woman presented with complaints of severe bilateral knee pain and valgus deformity. She has multiple medical comorbidities and is deconditioned secondary to these. The patient presented yesterday for left total knee arthroplasty. Plan is that she will likely require a right total knee arthroplasty secondary to the imbalance caused by the relative lengthening of her left lower extremity with this procedure as we straightened her significant valgus deformity. She is working with physical therapy, and independence is improving. She does not have assistance at home, and she is not felt to be safe to go home alone. Status: Acute (2) History of total left knee replacement: Status: Acute Attestations Medical Necessity Statement*: Patient requires ongoing medical management and physical therapy to improve independence and safety. Coding Level of Care Code Acute Nail Machine Operator for [facility] Diagnoses Primary osteoarthritis of left knee M17.12 History of total left knee replacement Z96.652
--- NOTE | 2020-11-14 16:56 | PM.PN ---
Subjective Subjective: Interval history: Patient was seen this morning, martínez is out, she is still having left knee pain, no fever, no chills, no nausea, no vomiting Vitals/I&O/Wt Last Vital Signs Temp 97.8 F 11/14/20 15:47 Pulse 89 11/14/20 15:47 Resp 18 11/14/20 15:47 BP 154/77 11/14/20 15:47 Pulse Ox 96 11/14/20 15:47 11/14/20 11/14/20 11/14/20 06:59 14:59 22:59 Intake Total 630 / 2990 120 / 120 Output Total 850 / 3900 Balance -220 / -910 120 / 120 Physical Exam Const: COMMON NORMALS: no acute distress and patient oriented x3 Neck/C-Spine: COMMON NORMALS: no JVD Resp: COMMON NORMALS: normal respiratory effort, No retractions, No use of accessory muscles and clear to auscultation bilaterally AUSCULTATION: clear to auscultation bilaterally Cardio: COMMON NORMALS: no JVD, regular rate, regular rhythm, S1 normal heart sound present and S2 normal heart sound present RATE: regular rate RHYTHM: regular rhythm HEART SOUNDS: S1 normal heart sound present and S2 normal heart sound present GI: COMMON NORMALS: Normal to inspection, nondistended, normoactive bowel sounds present, Soft to palpation, non-tender, No hepatosplenomegaly present, no masses and no bruits PALPATION: Yes Soft to palpation and Yes No hepatosplenomegaly present Extremity: NARRATIVE EXTREMITY EXAM: left knee pain is wrapped, Neuro: COMMON NORMALS: patient oriented x3 Psych: COMMON NORMALS: mental status grossly normal Urinary Catheter Management^: F: Cath Placed During This Visit: yes, but has since been removed by the nurse Reason for Continuing Indwelling Catheter: Decision to DC Catheter Urinary Catheter Date of Insertion: 11/13/20 Urinary Catheter Time of Insertion: 11:50 Date Urinary Catheter Removed: 11/14/20 Time Urinary Catheter Discontinued: 06:10 Data : 11/14/20 02:17 11/14/20 02:17 A&P Assessment and plan (1) Primary osteoarthritis of left knee: -Status post left knee arthroplasty -Pain control and anticoagulation as per orthopedic service -Martínez catheter out -Advance diet as tolerated -Low-dose sliding scale for type 2 diabetes mellitus -Monitor blood pressures -Monitor for postoperative anemia, monitor for confusion, monitor for fevers -aspirin 325mg -ptot -full code Status: Acute (2) Obesity (BMI 35.0-39.9 without comorbidity): Status: Acute (3) Diabetes mellitus: Status: Acute (4) HTN (hypertension) with goal to be determined: Status: Acute Attestations Medical Necessity Statement*: patient requires requires hospitalization for primary left knee osteoarthritis status post surgery Coding Level of Care Code Acute Flying Squad Worker for [facility] Fwd Diagnoses Primary osteoarthritis of left knee M17.12 Obesity (BMI 35.0-39.9 without comorbidity) E66.9 Diabetes mellitus E11.9 HTN (hypertension) with goal to be determined I10
[2020-11-14 17:41] LABS: Glucose Point of Care 146 mg/dL (70-110)
[2020-11-14] MEDS: acetaminophen 500 mg Tablet 1000 MG PO (18:16)
--- NOTE | 2020-11-14 18:22 | PC.NURSE ---
Addendum entered by Silvia Cee RN 11/14/20 18:31: DR KENNEY NOTIFIED - STRIKE PREVIOUS NOTIFICATION TO DR GOODSON Original Note: LOWERED TO FLOOR PT UP WITH GAIT BELT, WALKER AND REINA JARA TO AMBULATE TO BATHROOM - PT STATES RIGHT KNEE GAVE OUT AND PT WAS LOWERED TO THE FLOOR - NO INJURIES NOTED - PT DENIES PAIN - STATES MY LEG GAVE OUT - ATTEMPTED TO REACH BOTH DR GARCIA AND DR GOODSON
[2020-11-14] MEDS: ropinirole 2 mg Tablet 5 MG PO (20:59)
[2020-11-14 21:14] LABS: Glucose Point of Care 177 mg/dL (70-110)
[2020-11-15] VITALS (9 sets, daily range): BP systolic 120–140; BP diastolic 71–82; PULSE 75–95; RESP 12–20; TEMP 36.6–37.4; O2SAT 81–94
[2020-11-15] MEDS: oxyCODONE 5 mg IR Tab/Cap PO ×3 (00:43→18:50)
[2020-11-15] MEDS: acetaminophen 500 mg Tablet 1000 MG PO ×2 (00:43→09:01)
--- NOTE | 2020-11-15 04:54 | PC.NURSE ---
pt has been moderate-heavy one-two person assist getting up to the bedside commode. pt states that she has been unable to move her right foot after her right knee buckling. pt needs a lot of directional cues and strong encouragement in order for pt to scoot her feet. pt needs continued education with using the walker.
[2020-11-15] MEDS: hydroCHLOROthiazide 25 mg Tablet 12.5 MG PO (05:10)
[2020-11-15] MEDS: CELEcoxib 200 mg Capsule PO ×2 (05:11→17:58)
[2020-11-15 07:08] LABS: Glucose Point of Care 174 mg/dL (70-110)
[2020-11-15] MEDS: aspirin 325 mg EC Tablet PO (09:00)
[2020-11-15] MEDS: iron polysaccharide complex 150 mg Capsule PO ×2 (09:00→17:59)
[2020-11-15] MEDS: chlorhexidine gluconate 0.12% Btl 473 mL 30 ML MUCOUS MEM ×4 (09:00→22:12)
[2020-11-15] MEDS: calcium carbonate 500 mg Chew Tablet 1000 MG PO ×2 (09:00→17:57)
[2020-11-15] MEDS: ezetimibe 10 mg Tablet PO (09:01)
[2020-11-15] MEDS: cholecalciferol (vitamin D3) 1,000 unit Tablet 1000 UNIT PO (09:01)
[2020-11-15] MEDS: gabapentin 300 mg Capsule 600 MG PO ×3 (09:01→22:12)
[2020-11-15] MEDS: sennosides-docusate Tablet 2 TAB PO ×2 (09:02→17:59)
[2020-11-15] MEDS: multivitamin therapeutic Tablet 1 TAB PO (09:02)
[2020-11-15] MEDS: lisinopril 5 mg Tablet PO (09:03)
[2020-11-15] MEDS: montelukast sodium 10 mg Tablet PO (09:03)
[2020-11-15] MEDS: mupirocin oint 22 gm 1 APPLIC NASAL ×2 (09:04→17:59)
[2020-11-15] MEDS: duloxetine 20 mg Capsule PO ×2 (09:10→18:04)
--- NOTE | 2020-11-15 10:03 | P.PN_ITS ---
Subjective Subjective: Interval history: Patient was seen this morning, and she is considering nursing home. Last evening, she was eased to the floor by staff when her right leg, her nonoperative leg, became weak and did not want to move . She states that she chronically has problems in this right lower extremity. She states that this is no different from her normal. She has not expressed this previously. Medications: Reviewed: Yes Vitals/I&O/Wt Last Vital Signs Temp 97.9 F 11/15/20 07:38 Pulse 75 11/15/20 07:38 Resp 20 H 11/15/20 09:02 BP 140/78 11/15/20 07:38 Pulse Ox 93 11/15/20 07:38 11/14/20 11/15/20 11/15/20 22:59 06:59 14:59 Intake Total 150 / 270 320 / 590 Output Total 525 / 525 100 / 625 Balance -375 / -255 220 / -35 Physical Exam Const: COMMON NORMALS: no acute distress, average body habitus, patient oriented x3 and alert GENERAL APPEARANCE: cooperative and comfortable ORIENTATION/CONSCIOUSNESS: Yes awake HENMT: COMMON NORMALS: normocephalic and atraumatic HEAD & SCALP: normocephalic and atraumatic Eye: GENERAL EYE: appearance normal, both eyes and all related structures Chest: COMMONS NORMALS: normal inspection of the chest Resp: COMMON NORMALS: normal respiratory effort EFFORT & INSPECTION: Yes able to speak in complete sentences and Yes symmetric chest movement Extremity: NARRATIVE EXTREMITY EXAM: Although the patient complains of right leg issues, she is able to dorsiflex the foot and extend her knee on the side. She is not complaining of significant issues with her opposite left total knee. RIGHT LOWER EXTREMITY: Yes lower leg (Patient is able to flex and extend) Right lower leg: Yes neurovascular exam (Able to dorsiflex the foot) LEFT LOWER EXTREMITY: Yes knee joint (Some bleeding from the incision secondary to being lowered to the floor ) Left knee: Yes inspection (Incision is benign with no evidence of dehiscence), Yes palpation (Minimal to no tenderness), Yes ROM (Full extension, flexion to 90) and Yes neurovascular exam (Intact) Neuro: COMMON NORMALS: patient oriented x3 SENSORIUM/ORIENTATION: Yes alert Psych: COMMON NORMALS: mental status grossly normal APPEARANCE: Yes grossly normal ATTITUDE: Yes calm and Yes engaged ATTENTION/CONCENTRATION: Yes attention grossly intact Skin: COMMON NORMALS: no rashes or lesions noted GENERAL SKIN EXAM: no rashes or lesions noted Urinary Catheter Management^: F: Cath Placed During This Visit: yes, but has since been removed by the nurse Reason for Continuing Indwelling Catheter: Decision to DC Catheter Urinary Catheter Date of Insertion: 11/13/20 Urinary Catheter Time of Insertion: 11:50 Date Urinary Catheter Removed: 11/14/20 Time Urinary Catheter Discontinued: 06:10 Data : 11/14/20 02:17 11/14/20 02:17 A&P Assessment and plan (1) Primary osteoarthritis of left knee: This 75-year-old woman presented with complaints of severe bilateral knee pain and valgus deformity. She has multiple medical comorbidities and is deconditioned secondary to these. The patient underwent total knee arthroplasty on the left on November 13. She did well on the first postoperative day, but last evening, she was lowered to the floor by staff when her opposite right knee gave her issues. She felt she could not lift her right foot up off the floor. In speaking with her today, she states that this happens periodically to her. She has difficulty lifting her leg into the car. Today, she will weight-bear. She has considerable deconditioning as noted secondary to her medical comorbidities and inability to ambulate due to her significant bilateral knee deformities. She has been encouraged to consider nursing home at the time of discharge for safety and to improve her ability to be independent. Status: Acute (2) History of total left knee replacement: Status: Acute Attestations Medical Necessity Statement*: Patient requires ongoing physical therapy and monitoring. Coding Level of Care Code Acute Medical Research Assistant for [facility] Fu[facility] Diagnoses Primary osteoarthritis of left knee M17.12 History of total left knee replacement Z96.652
[2020-11-15 11:44] LABS: Glucose Point of Care 147 mg/dL (70-110)
--- NOTE | 2020-11-15 12:37 | PC.OT ---
Addendum entered by Cinthya Perkins OT 11/15/20 12:53: Patient was hard to rouse, she refused therapy. Will attempt later if able. Original Note: Patient would was hard to rouse, she refused therapy. Will attempt later if able.
--- NOTE | 2020-11-15 14:50 | PC.NUTR ---
Pt assessed due to MST score. Per chart, pt has only consumed 1 meal since admission. Contacted nurse regarding meals missing from chart and nurse states it is likely due to poor documentation. States she will check whether pt ate her lunch today. Recommend to continue with Consistent Carb diet and Glucerna daily if well tolerated and discontinue additional order for clear liquid diet if approved per MD. Recommend documentation of meals to better monitor overall nutritional intake.
[2020-11-15 16:58] LABS: Glucose Point of Care 127 mg/dL (70-110)
--- NOTE | 2020-11-15 17:45 | P.PN_ITS ---
Subjective Subjective: Interval history: Patient was seen this morning, she is doing well, no fevers, chills, she did have a slight episode last night when she slumped to the ground, her right knee seems like might of hit the ground, but no significant trauma no bleeding bruising, witnessed by a nurse, she does tell me that her ankle now hurts her, but is able to ambulate Vitals/I&O/Wt Last Vital Signs Temp 99.4 F 11/15/20 16:00 Pulse 84 11/15/20 16:00 Resp 18 11/15/20 16:00 BP 128/82 11/15/20 16:00 Pulse Ox 94 11/15/20 16:00 11/15/20 11/15/20 11/15/20 06:59 14:59 22:59 Intake Total 320 / 590 720 / 720 Output Total 100 / 625 620 / 620 Balance 220 / -35 100 / 100 Physical Exam Const: COMMON NORMALS: no acute distress and patient oriented x3 HENMT: COMMON NORMALS: normocephalic HEAD & SCALP: normocephalic Resp: COMMON NORMALS: normal respiratory effort, No retractions, No use of accessory muscles and clear to auscultation bilaterally AUSCULTATION: clear to auscultation bilaterally Cardio: COMMON NORMALS: regular rate, regular rhythm, S1 normal heart sound present and S2 normal heart sound present RATE: regular rate RHYTHM: regular rhythm HEART SOUNDS: S1 normal heart sound present and S2 normal heart sound present GI: COMMON NORMALS: Normal to inspection, nondistended, normoactive bowel sounds present, Soft to palpation, non-tender, No hepatosplenomegaly present, no masses and no bruits PALPATION: Yes Soft to palpation and Yes No hepatosplenomegaly present Extremity: COMMON NORMALS: no pedal edema NARRATIVE EXTREMITY EXAM: Right ankle, no significant pain with range of motion, right knee, no significant pain with motion Left knee, wrapped in bandage Neuro: COMMON NORMALS: patient oriented x3 Psych: COMMON NORMALS: mental status grossly normal Urinary Catheter Management^: F: Cath Placed During This Visit: yes, but has since been removed by the nurse Reason for Continuing Indwelling Catheter: Decision to DC Catheter Urinary Catheter Date of Insertion: 11/13/20 Urinary Catheter Time of Insertion: 11:50 Date Urinary Catheter Removed: 11/14/20 Time Urinary Catheter Discontinued: 06:10 Data : 11/14/20 02:17 11/14/20 02:17 A&P Assessment and plan (1) Primary osteoarthritis of left knee: -Status post left knee arthroplasty -Pain control and anticoagulation as per orthopedic service -Jane catheter out -Advance diet as tolerated -Low-dose sliding scale for type 2 diabetes mellitus -Monitor blood pressures -Monitor for postoperative anemia, monitor for confusion, monitor for fevers -aspirin 325mg -ptot -full code -Continue to monitor falls, monitor right knee -Working on jail placement Status: Acute (2) Obesity (BMI 35.0-39.9 without comorbidity): Status: Acute (3) Diabetes mellitus: Status: Acute (4) HTN (hypertension) with goal to be determined: Status: Acute Attestations Medical Necessity Statement*: Patient requires hospitalization for knee osteoarthritis, status post surgical invention Coding Level of Care Code Acute Powder And Primer Canning Leader for [facility] Diagnoses Primary osteoarthritis of left knee M17.12 Obesity (BMI 35.0-39.9 without comorbidity) E66.9 Diabetes mellitus E11.9 HTN (hypertension) with goal to be determined I10
--- NOTE | 2020-11-15 18:07 | P.DS_ITS ---
Discharge Providers Date of Admission: 11/13/20 13:47 Date of Discharge: November 16, 2020 Attending Provider at Admission: Izzy Beltran MD Attending Provider at Discharge: Izzy Beltran MD Primary Care Provider: Kee Sanabria Diagnoses at Discharge Discharge Diagnosis (1) Primary osteoarthritis of left knee: Status: Acute (2) Obesity (BMI 35.0-39.9 without comorbidity): Status: Acute (3) Diabetes mellitus: Status: Acute (4) HTN (hypertension) with goal to be determined: Status: Acute Reason for Visit Reason for Visit: Left knee arthritis Hospital Course Hospital Course This 75-year-old woman underwent left total knee arthroplasty on November 13, 2020. She had an uneventful total knee arthroplasty and was admitted to the floor postoperatively. Secondary to multiple medical comorbidities, the patient required inpatient admission and a medical consultation. She was quite deconditioned secondary to these medical comorbidities. She did well on the first postoperative day, but she did require significant assistance with normal activities of daily living. The patient was seen and evaluated by the medical service. She was medically optimized, but there were significant concerns secondary to weakness in both the upper and lower extremities. On the second postoperative day, she actually was lowered to the floor by staff. She did not have a berhane fall, but she states that her opposite right knee buckled on her causing her to be unable to support herself. It was elected that she would require assisted secondary to these issues so that she could best recover from her total knee and optimize her independence. It was also felt to be necessary for safety. Therefore, the patient is to be discharged to assisted. She will follow up with me in the office as previously scheduled. Physical Exam Const: COMMON NORMALS: no acute distress, average body habitus, patient oriented x3 and alert GENERAL APPEARANCE: cooperative and comfortable ORIENTATION/CONSCIOUSNESS: Yes awake HENMT: COMMON NORMALS: normocephalic and atraumatic HEAD & SCALP: norm ocephalic and atraumatic Eye: GENERAL EYE: appearance normal, both eyes and all related structures Chest: COMMONS NORMALS: normal inspection of the chest Resp: COMMON NORMALS: normal respiratory effort EFFORT & INSPECTION: Yes able to speak in complete sentences and Yes symmetric chest movement Extremity: NARRATIVE EXTREMITY EXAM: Although the patient complains of right leg issues, she is able to dorsiflex the foot and extend her knee on the side. She is not complaining of significant issues with her opposite left total knee. LEFT LOWER EXTREMITY: Yes knee joint Left knee: Yes inspection (Wound is benign. Slight bleeding.), Yes palpation (Minimal pain to palpation), Yes ROM (0-90) and Yes neurovascular exam (Intact distally with no evidence of DVT) Neuro: COMMON NORMALS: patient oriented x3 SENSORIUM/ORIENTATION: Yes alert Psych: COMMON NORMALS: mental status grossly normal APPEARANCE: Yes grossly normal ATTITUDE: Yes calm and Yes engaged ATTENTION/CONCENTRATION: Yes attention grossly intact Skin: COMMON NORMALS: no rashes or lesions noted GENERAL SKIN EXAM: no rashes or lesions noted Urinary Catheter Management^: F: Cath Placed During This Visit: yes, but has since been removed by the nurse Reason for Continuing Indwelling Catheter: Decision to DC Catheter Urinary Catheter Date of Insertion: 11/13/20 Urinary Catheter Time of Insertion: 11:50 Date Urinary Catheter Removed: 11/14/20 Time Urinary Catheter Discontinued: 06:10 Discharge Data 2 Data Completed and Pending: Completed Studies During Hospitalization Category Date Time Status XR knee LT 1-2V 7 3560 Urgent Exams 11/13/20 13:57 Completed Pending at discharge Category Date Time Status Complete Blood Co unt w/Auto AM LABS Lab 11/16/20 04:00 Ordered Complete Blood Co unt w/Auto AM LABS Lab 11/17/20 04:00 Ordered Complete Blood Co unt w/Auto AM LABS Lab 11/18/20 04:00 Ordered Comprehensive Met abolic Panel AM LA BS Lab 11/16/20 04:00 Ordered Comprehensive Met abolic Panel AM LA BS Lab 11/17/20 04:00 Ordered Comprehensive Met abolic Panel AM LA BS Lab 11/18/20 04:00 Ordered Magnesium AM LABS Lab 11/16/20 04:00 Ordered Magnesium AM LABS Lab 11/17/20 04:00 Ordered Magnesium AM LABS Lab 11/18/20 04:00 Ordered Phosphorus AM LAB S Lab 11/16/20 04:00 Ordered Phosphorus AM LAB S Lab 11/17/20 04:00 Ordered Phosphorus AM LAB S Lab 11/18/20 04:00 Ordered Labs from last 24 hours 11/15/20 11/15/20 11/15/20 16:12 11:13 06:36 POC Glucose 127 H 147 H 174 H 11/14/20 21:06 POC Glucose 177 H Vitals: Last Vital Signs Temp 99.4 F 11/15/20 16:00 Pulse 84 11/15/20 16:00 Resp 18 11/15/20 16:00 BP 128/82 11/15/20 16:00 Pulse Ox 94 11/15/20 16:00 Discharge Plan Discharge Patient Disposition: Xfer SNF Condition: Stable Prescriptions: New oxycodone 5 mg Tablet 5 mg PO Q4H PRN (Reason: Moderate Pain) 7 Days Qty: 30 RF: 0 aspirin 325 mg Tablet,Delayed Release (Dr/Ec) 325 mg PO DAILY Qty: 0 RF: 0 celecoxib 200 mg Capsule 200 mg PO DAILY Qty: 30 RF: 0 Continued metformin 500 mg tablet 500 mg PO BID RF: 0 tizanidine 2 mg capsule 2 mg PO BID PRN (Reason: Muscle Spasm) RF: 0 duloxetine 20 mg capsule, delayed rel sprinkle 20 mg PO BID RF: 0 hydrochlorothiazide 12.5 mg capsule 12.5 mg PO QAM RF: 0 benazepril 5 mg tablet 5 mg PO QDAY RF: 0 ezetimibe 10 mg tablet 10 mg PO QDAY RF: 0 ropinirole 5 mg tablet 5 mg PO QDAY RF: 0 montelukast 10 mg tablet 10 mg PO QDAY RF: 0 gabapentin 300 mg capsule 600 mg PO TID RF: 0 Discharge Orders: Discharge Order (Routine); Ordered 11/16/20 Ordered By: Izzy Beltran Referrals: Izzy Beltran MD [Physician] - 11/26/20 2:15 pm Discharge Diet: Advance as tolerated and Usual diet Discharge Activity: Increase activity as tolerated, Limit activity as instructed, Use walker/crutches as instructed and As per PT/OT instructions Patient Instructions: Total Knee Replacement (DC), Opioid Safety Activity Restrictions/Additional Instructions: Range of motion, strengthening, and gait training per physical therapy. Medical management per medical services and assisted. Discharge Attestations Time Spent in Discharge Care*: greater than 30 min Specific Discharge Activities: educating patient, discussing with pcp/other providers, discussing with case management director/social workers/dc planners and documenting/other paperwork Quality Metrics Clinical Quality Measures During this hospital stay, did patient experience: None Coding Level of Care Code Acute Chg FW DC note Diagnoses Primary osteoarthritis of left knee M17.12 Obesity (BMI 35.0-39.9 without comorbidity) E66.9 Diabetes mellitus E11.9 HTN (hypertension) with goal to be determined I10
[2020-11-15 21:40] LABS: Glucose Point of Care 189 mg/dL (70-110)
[2020-11-15] MEDS: ropinirole 2 mg Tablet 5 MG PO (22:12)
[2020-11-16] VITALS (7 sets, daily range): BP systolic 110–142; BP diastolic 56–83; PULSE 72–90; RESP 16–20; TEMP 36.4–37.2; O2SAT 92–94
[2020-11-16] MEDS: acetaminophen 500 mg Tablet 1000 MG PO ×2 (02:26→09:24)
[2020-11-16] MEDS: oxyCODONE 5 mg IR Tab/Cap PO ×2 (02:26→09:23)
[2020-11-16 02:57] LABS: Basophils # 0.1 10^3/uL (0.0-0.1); Basophils % 0.4 %; Eosinophils # 0.4 10^3/uL (0.0-0.8); Eosinophils % 3.1 %; Hematocrit 31.8 % (37.0-47.0); Hemoglobin 9.9 g/dL (11.5-15.3); Lymphocytes # 1.9 10^3/uL (0.8-4.8); Mean Corpuscular HGB Conc 31.1 g/dL (30.0-36.0); Mean Corpuscular Hemoglobin 29.3 pg (28.0-34.0); Mean Corpuscular Volume 94.1 fL (81-99); Mean Platelet Volume 9.9 fL (7.4-10.4); Monocytes # 0.8 10^3/uL (0.2-0.9); Monocytes % 5.9 %; Neutrophils # 10.42 10^3/uL (1.8-7.7); Neutrophils % 76.2 %; Nucleated Red Blood Cells % 0 %; Platelet Count 298 10^3/cmm (130-400); Red Blood Count 3.38 10^6/uL (4.1-5.3); Red Cell Distribution Width 14.2 % (12.1-15.1); White Blood Count 13.7 10^3/uL (4.0-10.0)
[2020-11-16 03:23] LABS: Alanine Aminotransferase 6 U/L (0-33); Albumin Level 3.1 g/dL (3.5-5.2); Alkaline Phosphatase 89 IU/L (35-105); Anion Gap 13.7 (5-19); Aspartate Amino Transferase 17 U/L (0-32); Blood Urea Nitrogen 17 mg/dL (8-23); Carbon Dioxide 27 mmol/L (22-29); Chloride 101 mmol/L (98-107); Globulin 3.4 g/dL (1.3-4.6); Glucose 151 mg/dL (65-115); Magnesium 2.1 mg/dL (1.7-2.3); Osmolality Calculated 290 mOsm/kg (285-295); Phosphorus 2.3 mg/dL (2.5-4.5); Potassium 3.7 mmol/L (3.5-5.1); Sodium 138 mmol/L (136-145); Total Bilirubin 0.9 mg/dL (0.15-1.2); Total Protein 6.5 g/dL (6.6-8.7)
[2020-11-16] MEDS: CELEcoxib 200 mg Capsule PO (05:54)
[2020-11-16] MEDS: hydroCHLOROthiazide 25 mg Tablet 12.5 MG PO (05:54)
[2020-11-16 06:22] LABS: Glucose Point of Care 147 mg/dL (70-110)
[2020-11-16] MEDS: ezetimibe 10 mg Tablet PO (09:24)
[2020-11-16] MEDS: calcium carbonate 500 mg Chew Tablet 1000 MG PO (09:24)
[2020-11-16] MEDS: duloxetine 20 mg Capsule PO (09:24)
[2020-11-16] MEDS: cholecalciferol (vitamin D3) 1,000 unit Tablet 1000 UNIT PO (09:24)
[2020-11-16] MEDS: mupirocin oint 22 gm 1 APPLIC NASAL (09:24)
[2020-11-16] MEDS: aspirin 325 mg EC Tablet PO (09:24)
[2020-11-16] MEDS: montelukast sodium 10 mg Tablet PO (09:24)
[2020-11-16] MEDS: gabapentin 300 mg Capsule 600 MG PO (09:25)
[2020-11-16] MEDS: lisinopril 5 mg Tablet PO (09:25)
[2020-11-16] MEDS: multivitamin therapeutic Tablet 1 TAB PO (09:25)
[2020-11-16] MEDS: sennosides-docusate Tablet 2 TAB PO (09:25)
[2020-11-16] MEDS: iron polysaccharide complex 150 mg Capsule PO (09:25)
[2020-11-16] MEDS: chlorhexidine gluconate 0.12% Btl 473 mL 30 ML MUCOUS MEM (09:29)
[2020-11-16 11:12] LABS: Glucose Point of Care 160 mg/dL (70-110)
[2020-11-16 11:38] LABS: SARS Covid-2 Antigen Negative (Negative)
--- NOTE | 2020-11-16 14:07 | PM.PN ---
Subjective Subjective: Interval history: Patient was seen this morning, she has no complaints, she is ready to go to the group home, no fevers, no chills, no nausea, no vomiting, no chest pain Vitals/I&O/Wt Last Vital Signs Temp 98.2 F 11/16/20 11:44 Pulse 78 11/16/20 11:44 Resp 18 11/16/20 11:44 BP 110/56 11/16/20 11:44 Pulse Ox 94 11/16/20 11:44 11/15/20 11/16/20 11/16/20 22:59 06:59 14:59 Intake Total 500 / 1220 120 / 120 Balance 500 / 600 120 / 120 Physical Exam Const: COMMON NORMALS: no acute distress and patient oriented x3 Resp: COMMON NORMALS: normal respiratory effort, No retractions, No use of accessory muscles and clear to auscultation bilaterally AUSCULTATION: clear to auscultation bilaterally Cardio: COMMON NORMALS: regular rate, regular rhythm, S1 normal heart sound present and S2 normal heart sound present RATE: regular rate RHYTHM: regular rhythm HEART SOUNDS: S1 normal heart sound present and S2 normal heart sound present GI: COMMON NORMALS: Normal to inspection, nondistended, normoactive bowel sounds present, Soft to palpation and non-tender PALPATION: Yes Soft to palpation Extremity: COMMON NORMALS: no pedal edema Neuro: COMMON NORMALS: patient oriented x3 Psych: COMMON NORMALS: mental status grossly normal Urinary Catheter Management^: F: Cath Placed During This Visit: yes, but has since been removed by the nurse Reason for Continuing Indwelling Catheter: Decision to DC Catheter Urinary Catheter Date of Insertion: 11/13/20 Urinary Catheter Time of Insertion: 11:50 Date Urinary Catheter Removed: 11/14/20 Time Urinary Catheter Discontinued: 06:10 Data : 11/16/20 02:20 11/16/20 02:20 A&P Assessment and plan (1) Primary osteoarthritis of left knee: -Status post left knee arthroplasty -Pain control and anticoagulation as per orthopedic service -Jane catheter out -Advance diet as tolerated -Low-dose sliding scale for type 2 diabetes mellitus -Monitor blood pressures -Monitor for postoperative anemia, monitor for confusion, monitor for fevers -aspirin 325mg -ptot -full code -Continue to monitor falls, monitor right knee -Working on group home placement -Patient will be discharged to patient will be discharged today Status: Acute (2) Obesity (BMI 35.0-39.9 without comorbidity): Status: Acute (3) Diabetes mellitus: Status: Acute (4) HTN (hypertension) with goal to be determined: Status: Acute Attestations Medical Necessity Statement*: Patient will be discharged today Coding Level of Care Code Acute Configuration Analyst for [facility] Fwd Diagnoses Primary osteoarthritis of left knee M17.12 Obesity (BMI 35.0-39.9 without comorbidity) E66.9 Diabetes mellitus E11.9 HTN (hypertension) with goal to be determined I10
--- NOTE | 2020-11-16 15:32 | PC.SOCIAL ---
*IMM UPDATE* Gave patient IMM update. Provided her copy of page 2. Verbalized understanding. 11/16/20 @ 0859 Initialed, dated, timed and placed in chart.
== END 2020-11-16 17:38 | disposition skilled nursing facility (03) | DRG 470 ==
LOC: MEDSURG 15:02
PROVIDERS: Family Medicine; Admitting Provider Specialist; PCP Family Medicine; Visit Provider Specialist
PROC: 0SRD0JA Replacement of Left Knee Joint with Synthetic Substitute, Uncemented, Open Approach (ICD-10-PCS; CPT 27447; principal; 2020-11-13 09:55)
DX: M17.12 Unilateral primary osteoarthritis, left knee (principal); Z79.84 Long term (current) use of oral hypoglycemic drugs; E11.9 Type 2 diabetes mellitus without complications; Z79.891 Long term (current) use of opiate analgesic; E66.9 Obesity, unspecified; Z68.39 Body mass index [BMI] 39.0-39.9, adult; M21.062 Valgus deformity, not elsewhere classified, left knee; M21.061 Valgus deformity, not elsewhere classified, right knee; G89.29 Other chronic pain; E78.5 Hyperlipidemia, unspecified; I10 Essential (primary) hypertension; G25.81 Restless legs syndrome; R29.6 Repeated falls
CPT/HCPCS: 36415; 36416; 51702; 64447; 73560; 76942; 80048; 80053; 81003; 82962; 83735; 84100; 85025; 87426; 96365; 96372; 96374; 97110; 97116; 97161; 97165; 97530; 97535; C1776; C9290; J0690; J1815; J1885; J2370; J2704; J2795; J3370; J3490; J7030

== ENCOUNTER 2020-11-26 15:56 | Outpatient (CLI) | payer OTHER, MEDICARE, MEDICAID, SELFPAY | END 2020-11-26 15:57 | disposition home or self-care (01) | LOC: SPT 15:57 | PROVIDERS: PCP Family Medicine; Visit Provider Specialist | DX: Z46.89 Encounter for fitting and adjustment of other specified devices (principal); S82.831D Other fracture of upper and lower end of right fibula, subsequent encounter for closed fracture with routine healing; X58.XXXD Exposure to other specified factors, subsequent encounter | CPT/HCPCS: 97760; L1902; L4361 ==

== ENCOUNTER → 2021-01-16 09:09 | Outpatient (BNVA) | payer MEDICARE, MEDICAID, SELFPAY | PROVIDERS: PCP Family Medicine; Visit Provider Specialist | DX: S82.831A Other fracture of upper and lower end of right fibula, initial encounter for closed fracture (principal); X58.XXXA Exposure to other specified factors, initial encounter | CPT/HCPCS: 73560; 73610 ==

== ENCOUNTER 2021-06-04 11:40 | Emergency (ER) | payer MEDICARE, MEDICAID, SELFPAY ==
[2021-06-04 11:50] VITALS: BP 165/116; PULSE 71; O2SAT 98; BMI 42.4
--- NOTE | 2021-06-04 11:57 | XRR_ITS ---
PROCEDURE INFORMATION: Exam: XR Left Knee Exam date and time: 06/04/2021 11:57 AM Age: 75 years old Clinical indication: Pain; Left; Prior surgery; Surgery type: Knee replacement; Additional info: HX knee arhtoplasty, difficulty standing TECHNIQUE: Imaging protocol: XR Left knee. Views: 3 views. COMPARISON: CR XR knee LT 1-2V [id number] 01/16/2021 9:16 AM FINDINGS: Bones/joints: Recent postsurgical changes of left knee total arthroplasty. Prosthesis components intact and well aligned. Soft tissues: Skin carole and soft tissue air in the postsurgical setting. XR/XR knee LT 3V* [id number] IMPRESSION: Recent postsurgical changes of left knee total arthroplasty.
--- NOTE | 2021-06-04 11:57 | ECG_ITS ---
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 Measurements Intervals [place] Rate: 67 P: 52 SC: 193 QRS: 16 QRSD: 87 T: 56 QT: 375 QTc: 398 Interpretive Statements SINUS RHYTHM POSSIBLE RIGHT VENTRICULAR CONDUCTION DELAY [RSR (QR) IN V1/V2] Compared to ECG 06/12/2020 10:50:12 Sinus bradycardia no longer present Electronically Signed On 06-04-2021 17:53:29 TRACER BULLET SECTION SUPERVISOR by Maureen Glass M.D. [email or web address]
--- NOTE | 2021-06-04 11:58 | XRR_ITS ---
PROCEDURE INFORMATION: Exam: XR Chest Exam date and time: 06/04/2021 11:58 AM Age: 75 years old Clinical indication: Cough and dyspnea; Additional info: Dyspnea/cough TECHNIQUE: Imaging protocol: XR of the chest. Views: 1 view. COMPARISON: CR XR knees AP WB w BI lmt ORTH 05/03/2020 11:49 AM FINDINGS: Lungs: Unremarkable. No consolidation. Pleural spaces: Unremarkable. No pleural effusion. No pneumothorax. Heart/Mediastinum: Cardiac silhouette upper normal. Mild unfolding of the descending aorta. Bones/joints: Unremarkable. XR/XR chest 1V portable [id number] IMPRESSION: No acute findings.
--- NOTE | 2021-06-04 12:10 | W.ED.WEAKNES ---
HPI - Weakness General: Chief complaint: Weakness Stated complaint: KNEE SURGERY UNABLE TO CARE FOR SELF Time Seen by Provider: 06/04/21 11:51 History of Present Illness: HPI Narrative: She [id number] female presents emergency room planing of generalized weakness. She was recently hospitalized at [place] for revision of her knee left knee arthroplasty she has been able to take care of herself she was discharged home 2 days ago. She presents here with anticipation that we will transfer her directly to [facility]. She denies any shortness of breath chest pain or abdominal pain she is on Eliquis which she has been taking regularly denies any dysuria urgency or frequency. Patient presented to the emergency room with complaint of generalized weakness wanting to go to the senior living. Via ambulance because that would get her to [place] and then she expected to be transferred from here to the senior living stating she had already made great arrangements at the senior living to be admitted. Complaint: generalized weakness Onset (ago): day(s) Duration: constant Location: generalized Migration: none Severity: mild Relieving factors: none Exacerbating factors: none Associated symptoms: Reports myalgias and nausea; Denies chest pain, chills, confusion, melena, decreased appetite, diaphoresis, dysuria, easy bruising, fever(s), headache(s), rash, short of breath, syncope or vomiting Review of Systems Const: Denies: fever(s), chills or diaphoresis ENMT: Denies: throat pain, ear or mastoid pain, nasal discharge or nasal congestion Card: Denies: chest pain or syncope Resp: Denies: dyspnea, productive cough or non-productive cough GI: Reports: nausea; Denies: vomiting or melena : Denies: dysuria Skin/Breast: Denies: rash or pruritus Neuro: Denies: headache(s) or confusion [place]/Lymph: Denies: easy bruising PFSH ED PFSH: Medical History Diabetes mellitus Hx of carpal tunnel syndrome Long-term current use of opiate analgesic Pain management contract signed Family History Brother Diabetes Other Cancer Denies family history of Stroke Social History (Reviewed 06/11/21 @ 15:23 by RAHAT Melendrez Smoking and tobacco status: never smoked Alcohol intake: never Household members: other Details: Roomate Marital status: Single Current occupational status: disabled Physical Exam Const: GENERAL APPEARANCE: cooperative and comfortable ORIENTATION/CONSCIOUSNESS: Yes awake, Yes oriented to person, Yes oriented to place and Yes oriented to time HENMT: COMMON NORMALS: normocephalic, atraumatic and hearing grossly normal bilaterally HEAD & SCALP: normocephalic and atraumatic Neck/C-Spine: COMMON NORMALS: no JVD Resp: COMMON NORMALS: normal respiratory effort, No retractions, No use of accessory muscles and clear to auscultation bilaterally AUSCULTATION: clear to auscultation bilaterally Cardio: COMMON NORMALS: no JVD, regular rate, regular rhythm and No murmurs present (Cardio) RATE: regular rate RHYTHM: regular rhythm GI: COMMON NORMALS: Soft to palpation and No hepatosplenomegaly present AUSCULTATION: Yes normoactive bowel sounds PALPATION: Yes Soft to palpation, No Tenderness to palpation present (GI), No Guarding due to palpation present (GI) and Yes No hepatosplenomegaly present Extremity: COMMON NORMALS: normal to inspection, capillary refill normal, no clubbing, cyanosis or edema, no calf tenderness and no pedal edema Neuro: SENSORIUM/ORIENTATION: Yes oriented to person, Yes oriented to place and Yes oriented to time Skin: COMMON NORMALS: no rashes or lesions noted GENERAL SKIN EXAM: no rashes or lesions noted Course Vital Signs: Vital signs: Vital Signs Pulse Rate 71 06/04/21 11:50 Respiratory Rate 15 06/04/21 16:46 Blood Pressure 123/63 06/04/21 16:46 Pulse Oximetry 100 06/04/21 16:46 MDM - Weakness MDM Narrative: Medical decision making narrative: Patient does have significant anemia to be expected and consistent with her history. Given the current condition she has no real specific complaints other than generally just being tired and weak and not able to manage her own ADLs. Case management fortunately assisted in making arrangements for her to be transferred from the ER a few blocks down the road to [place] where she will be an inpatient. The case management confirmed that they are able to admit her arrangements have been made and attending is in place. Lab Data: Labs: Lab Results 06/04/21 06/04/21 11:30 11:30 WBC 11.7 10^3/uL H 10 ^3/uL (4.0-10.0) RBC 3.03 10^6/uL L 10 ^6/uL (4.1-5.3) Hgb 8.8 g/dL L g/dL (11.5-15.3) Hct 28.5 % L % (37.0-47.0) MCV 94.1 fl fl (81-99) MCH 29.0 pg pg (28.0-34.0) MCHC 30.9 g/dL g/dL (30.0-36.0) RDW 14.1 % % (12.1-15.1) Plt Count 542 10^3/cmm H 10 ^3/cmm (130-400) MPV 8.9 fL fL (7.4-10.4) Neut % (Auto) 71.4 % % Lymph % (Auto) 18.2 % % [place] % (Auto) 7.4 % % Eos % (Auto) 2.3 % % Baso % (Auto) 0.3 % % Neut # (Auto) 8.37 10^3/uL H 10 ^3/uL (1.8-7.7) Lymph # (Auto) 2.1 10^3/uL 10^3/ uL (0.8-4.8) [place] # (Auto) 0.9 10^3/uL 10^3/ uL (0.2-0.9) Eos # (Auto) 0.3 10^3/uL 10^3/ uL (0.0-0.8) Baso # (Auto) 0.0 10^3/uL 10^3/ uL (0.0-0.1) Nucleated RBC % (a uto) 0 % % Nucleated RBCs # 0.0 /100WBC /100W BC Sodium 138 mmol/L mmol/L (136-145) Potassium 3.9 mmol/L mmol/L (3.5-5.1) Chloride 100 mmol/L mmol/L (98-107) Carbon Dioxide 26 mmol/L mmol/L (22-29) Anion Gap 15.9 (5-19) BUN 9 mg/dL mg/dL (8-23) Creatinine 0.4 mg/dL L mg/dL (0.5-0.9) GFR Calculation Not Reportable Glucose 183 mg/dL H mg/dL (65-115) Calculated Osmolal ity 289 mOsm/kg mOsm/ kg (285-295) Calcium 8.3 mg/dL L mg/dL (8.5-10.5) Total Bilirubin 0.5 mg/dL mg/dL (0.15-1.2) AST 12 U/L U/L (0-32) ALT 10 U/L U/L (0-33) Alkaline Phosphata se 94 IU/L IU/L (35-105) Total Protein 6.5 g/dL L g/dL (6.6-8.7) Albumin 3.1 g/dL L g/dL (3.5-5.2) Globulin 3.4 g/dL g/dL (1.3-4.6) Discharge Plan Discharge Patient Disposition: [facility] Clinical Impression: History of total left knee replacement, HTN (hypertension) with goal to be determined, Morbid obesity with BMI of 40.0-44.9, adult, Weakness Condition: Stable Referrals: Kee Sanabria [Primary Care Provider] - Discharge Diet: Usual diet Discharge Activity: Limit activity as instructed Activity Restrictions/Additional Instructions: Discharge from the ER to [facility]. Coding Level of Care Code ED Community Service Officer for Magdalena Fuentes
[2021-06-04 13:14] LABS: Basophils % 0.3 %; Eosinophils # 0.3 10^3/uL (0.0-0.8); Eosinophils % 2.3 %; Hematocrit 28.5 % (37.0-47.0); Hemoglobin 8.8 g/dL (11.5-15.3); Lymphocytes # 2.1 10^3/uL (0.8-4.8); Lymphocytes % 18.2 %; Mean Corpuscular HGB Conc 30.9 g/dL (30.0-36.0); Mean Corpuscular Volume 94.1 fl (81-99); Mean Platelet Volume 8.9 fL (7.4-10.4); Monocytes # 0.9 10^3/uL (0.2-0.9); Monocytes % 7.4 %; Neutrophils # 8.37 10^3/uL (1.8-7.7); Neutrophils % 71.4 %; Nucleated Red Blood Cells % 0 %; Platelet Count 542 10^3/cmm (130-400); Red Blood Count 3.03 10^6/uL (4.1-5.3); Red Cell Distribution Width 14.1 % (12.1-15.1); White Blood Count 11.7 10^3/uL (4.0-10.0)
[2021-06-04 13:27] LABS: Alanine Aminotransferase 10 U/L (0-33); Albumin Level 3.1 g/dL (3.5-5.2); Alkaline Phosphatase 94 IU/L (35-105); Anion Gap 15.9 (5-19); Aspartate Amino Transferase 12 U/L (0-32); Blood Urea Nitrogen 9 mg/dL (8-23); Calcium 8.3 mg/dL (8.5-10.5); Carbon Dioxide 26 mmol/L (22-29); Chloride 100 mmol/L (98-107); Globulin 3.4 g/dL (1.3-4.6); Glucose 183 mg/dL (65-115); Osmolality Calculated 289 mOsm/kg (285-295); Potassium 3.9 mmol/L (3.5-5.1); Sodium 138 mmol/L (136-145); Total Bilirubin 0.5 mg/dL (0.15-1.2); Total Protein 6.5 g/dL (6.6-8.7)
--- NOTE | 2021-06-04 13:49 | PC.SOCIAL ---
spoke with [facility] and they are agreeable to accept from ED. Can take today. Will need to schedule [facility] transport through Medicaid. Will send Med list and what documentation is available will need to send signed provider note once available. patient is aware she is accepted at [facility] and will be going there once transport arrives.
--- NOTE | 2021-06-04 14:00 | PC.SOCIAL ---
Addendum entered by Jes Yu RN 06/04/21 14:13: Trip ID: [id number] per [facility] asked to upgrade to S for [facility] to transport since they are the only ones that provide stretcher transport. Original Note: Called [facility] Transport and upgraded to BLS due to patient is unable to bend her left knee because of recent procedure. Bedbound. Trip ID: Faxed what notes available and med list to jason Perkins at [facility]. Asked Night Coordinator to have nurse call report. Fax confirmation received that it was sent successfully.
[2021-06-04 15:58] VITALS: BP 139/118; RESP 14; O2SAT 97
[2021-06-04 16:46] VITALS: BP 123/63; RESP 15; O2SAT 100
== END 2021-06-04 16:48 ==
PROVIDERS: Emergency Provider Family Medicine; PCP Family Medicine
DX: R53.1 Weakness (principal); I10 Essential (primary) hypertension; E66.01 Morbid (severe) obesity due to excess calories; Z68.41 Body mass index [BMI] 40.0-44.9, adult; E11.9 Type 2 diabetes mellitus without complications; D64.9 Anemia, unspecified; Z79.891 Long term (current) use of opiate analgesic; Z79.01 Long term (current) use of anticoagulants; Z96.652 Presence of left artificial knee joint
CPT/HCPCS: 36415; 71045; 73562; 80053; 85025; 93005; 99283

== ENCOUNTER 2021-06-10 10:16 | Outpatient (CLI) | payer MEDICARE, MEDICAID, SELFPAY ==
[2021-06-10 10:44] LABS: Basophils % 0.2 %; Eosinophils # 0.1 10^3/uL (0.0-0.8); Eosinophils % 1.2 %; Hemoglobin 8.2 g/dL (11.5-15.3); Lymphocytes # 1.9 10^3/uL (0.8-4.8); Lymphocytes % 16.8 %; Mean Corpuscular HGB Conc 31.5 g/dL (30.0-36.0); Mean Corpuscular Hemoglobin 29.4 pg (28.0-34.0); Mean Corpuscular Volume 93.2 fl (81-99); Mean Platelet Volume 8.9 fL (7.4-10.4); Monocytes # 0.8 10^3/uL (0.2-0.9); Monocytes % 6.8 %; Neutrophils # 8.39 10^3/uL (1.8-7.7); Neutrophils % 74.5 %; Nucleated Red Blood Cells % 0 %; Platelet Count 658 10^3/cmm (130-400); Red Blood Count 2.79 10^6/uL (4.1-5.3); White Blood Count 11.3 10^3/uL (4.0-10.0)
== END 2021-06-10 10:17 | disposition home or self-care (01) ==
PROVIDERS: PCP Family Medicine; Visit Provider Nurse Practitioner Family
DX: D64.9 Anemia, unspecified (principal)
CPT/HCPCS: 85025

== ENCOUNTER → 2022-05-28 15:52 | Outpatient (BNVA) | payer MEDICARE, MEDICAID, SELFPAY | PROVIDERS: PCP Internal Medicine; Visit Provider Specialist | DX: Z96.652 Presence of left artificial knee joint (principal); M25.562 Pain in left knee; G89.29 Other chronic pain | CPT/HCPCS: 73560; 73565; 99214 ==

== ENCOUNTER 2024-01-11 15:25 | Emergency (ER) | payer MEDICAID, SELFPAY ==
[2024-01-11 15:26] VITALS: BMI 47.2
[2024-01-11 15:34] VITALS: BP 197/118; PULSE 77; O2SAT 95
[2024-01-11 15:35] VITALS: BP 197/118; PULSE 76; O2SAT 95
--- NOTE | 2024-01-11 15:35 | XRR_ITS ---
PROCEDURE INFORMATION: Exam: XR Left Hip Exam date and time: 01/11/2024 3:53 PM Age: 78 years old Clinical indication: Injury or trauma; Fall; Blunt trauma (contusions or hematomas); Left; Hip TECHNIQUE: Imaging protocol: Radiologic exam of the left hip. Views: 2 or 3 views hip with pelvis when performed. COMPARISON: No relevant prior studies available. FINDINGS: Bones/joints: Negative for fracture or dislocation. Soft tissues: Unremarkable. XR/XR hip LT 2-3V wo/w pel* [id number] IMPRESSION: No acute findings.
--- NOTE | 2024-01-11 15:52 | XRR_ITS ---
PROCEDURE INFORMATION: Exam: XR Cervical Spine Exam date and time: 01/11/2024 4:07 PM Age: 78 years old Clinical indication: Injury or trauma; Fall; Sprain or strain, cervical ligaments TECHNIQUE: Imaging protocol: Radiologic exam of the cervical spine. Views: 2 or 3 views. COMPARISON: CR XR chest 1V portable [id number] 06/04/2021 12:12 PM FINDINGS: Bones/joints: No acute fracture. Normal alignment. 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 Soft tissues: Unremarkable. XR/XR cervical spine 3V* [id number] IMPRESSION: No acute findings.
--- NOTE | 2024-01-11 15:52 | XRR_ITS ---
PROCEDURE INFORMATION: Exam: XR Left Knee Exam date and time: 01/11/2024 4:18 PM Age: 78 years old Clinical indication: Injury or trauma; Fall; Blunt trauma; Knee; Left TECHNIQUE: Imaging protocol: Radiologic exam of the left knee. Views: 3 views. COMPARISON: CR XR knees AP WB w LT lmt ORTH 05/28/2022 3:52 PM FINDINGS: Bones/joints: Intact left total knee arthroplasty with femoral and tibial extended stems and cerclage wires. No signs of hardware loosening or acute fracture. Soft tissues: Normal. XR/XR knee LT 3V* [id number] IMPRESSION: No acute findings.
[2024-01-11 16:24] LABS: Alanine Aminotransferase 17 U/L (0-33); Albumin Level 4.3 g/dL (3.5-5.2); Alkaline Phosphatase 134 U/L (35-105); Blood Urea Nitrogen 13 mg/dL (8-23); Calcium 9.8 mg/dL (8.5-10.5); Carbon Dioxide 26 mmol/L (22-29); Chloride 95 mmol/L (98-107); Globulin 4.3 g/dL (1.3-4.6); Glucose 162 mg/dL (65-115); Osmolality Calculated 290 mOsm/kg (285-295); Sodium 138 mmol/L (136-145); Total Bilirubin 0.5 mg/dL (0.15-1.2); Total Protein 8.6 g/dL (6.6-8.7)
[2024-01-11 16:33] LABS: Anion Gap 20.7 (5-19); Aspartate Amino Transferase 20 U/L (0-32); Potassium 3.7 mmol/L (3.5-5.1)
--- NOTE | 2024-01-11 16:59 | ED_ITS ---
HPI - Extremity Problem 2 General: Chief complaint: Extremity Injury, Lower Stated complaint: fall, left hip pain Time Seen by Provider: 01/11/24 15:31 History of Present Illness: 78-year-old female presents emergency ro om complaint left hip pain after ground- level fall she slipped and fell while getting out of the shower. She complains a little bit of pain in her left hip and her left knee but denies any loss of consciousness. No other injuries. Denies striking her head. Denies fever sweats chills abdominal pain or chest pain no dysuria urgency or frequency no cough or shortness of breath Associated symptoms: Deny chest pain, fever(s) or rash Review of Systems 2 Const: Denies: fever(s) or chills Card: Denies: chest pain Resp: Denies: dyspnea GI: Denies: abdominal pain : Denies: dysuria, urinary frequency or urinary urgency Musc: Denies: neck pain or back pain Skin/Breast: Denies: rash PFSH ED 2 PFSH: Medical History Diabetes mellitus Hx of carpal tunnel syndrome Long-term current use of opiate analgesic Pain management contract signed Family History Brother Diabetes Other Cancer Denies family history of Stroke Social History Smoking and tobacco/nicotine status: never used tobacco/nicotine Alcohol intake: never Substance/Drug Use: never Household members: other Details: Roomate Marital status: Single Current occupational status: disabled Physical Exam 2 Const: GENERAL APPEARANCE: cooperative and comfortable O RIENTATION/CONSCIOUSNESS: Yes awake, Yes oriented to person, Yes oriented to place and Yes oriented to time HENMT: COMMON NORMALS: normocephalic, atraumatic and hearing grossly normal bilaterally HEAD & SCALP: normocephalic and atraumatic Resp: COMMON NORMALS: normal respiratory effort, No retractions, No use of accessory muscles and clear to auscultation bilaterally AUSCULTATION: clear to auscultation bilaterally Cardio: COMMON NORMALS: regular rate, regular rhythm and No murmurs present (Cardio) RATE: regular rate RHYTHM: regular rhythm GI: COMMON NORMALS: Soft to palpation and No hepatosplenomegaly present A USCULTATION: Yes normoactive bowel sounds PALPATION: Yes Soft to palpation, No Tenderness to palpation present (GI), No Guarding due to palpation present (GI) and Yes No hepatosplenomegaly present Extremity: COMMON NORMALS: normal to inspection, capillary refill normal, no clubbing, cyanosis or edema, no calf tenderness and no pedal edema Neuro: SENSORIUM/ORIENTATION: Yes oriented to person, Yes oriented to place and Yes oriented to time Skin: COMMON NORMALS: no rashes or lesions noted GENERAL SKIN EXAM: no rashes or lesions noted Course 2 Vital Signs: Vital signs: Vital Signs Pulse Rate 91 01/11/24 20:41 Blood Pressure 157/110 01/11/24 19:12 Pulse Oximetry 95 01/11/24 20:41 Oxygen Delivery Me thod Room Air 01/11/24 19:49 MDM - Extremity (Nontraumatic) Medical Decision Making Lab imaging reviewed no sign of any fractures. Patient ambulated without difficulty will discharge patient home. Follow-up with her primary care doctor. She does have some mild leukocytosis which think is secondary to her demargination with her fall. There is no signs of active infection. Lab Data 01/11/24 17:10 01/11/24 15:46 Radiology Impressions Hip/Pelvis X-Ray 01/11/24 15:35 IMPRESSION: No acute findings. Cervical Spine X-Ray 01/11/24 15:52 IMPRESSION: No acute findings. Knee X-Ray 01/11/24 15:52 IMPRESSION: No acute findings. Laboratory Results WBC 13.84 10^3/uL (3.29-11.43) H 01/11/24 17:10 Corrected WBC Cancelled 01/11/24 15:46 RBC 4.91 10^6/uL (3.85-5.65) 01/11/24 17:10 Hgb 14.30 g/dL (11.27-16.99) 01/11/24 17:10 Hct 47.9 % (36-47) H 01/11/24 17:10 MCV 97.6 fl (85-98) 01/11/24 17:10 MCH 29.1 pg (27-33) 01/11/24 17:10 MCHC 29.9 g/dL (30-55) L 01/11/24 17:10 RDW 14.0 % (12.1-15.1) 01/11/24 17:10 Plt Count 383 10^3/cmm (157-399) 01/11/24 17:10 MPV 9.1 fL (7.4-10.4) 01/11/24 17:10 Gran % Cancelled 01/11/24 15:46 Neut % (Auto) 74.1 % 01/11/24 17:10 Lymph % (Auto) 18.9 % 01/11/24 17:10 Trigg % (Auto) 5.7 % 01/11/24 17:10 Eos % (Auto) 0.4 % 01/11/24 17:10 Baso % (Auto) 0.4 % 01/11/24 17:10 Neut # (Auto) 10.24 10^3/uL (1.8-7.7) H 01/11/24 17:10 Lymph # (Auto) 2.6 10^3/uL (0.8-4.8) 01/11/24 17:10 Trigg # (Auto) 0.8 10^3/uL (0.2-0.9) 01/11/24 17:10 Eos # (Auto) 0.1 10^3/uL (0.0-0.8) 01/11/24 17:10 Baso # (Auto) 0.1 10^3/uL (0.0-0.1) 01/11/24 17:10 Absolute Gran (auto) Cancelled 01/11/24 15:46 Nucleated RBC % (auto) 0 % 01/11/24 17:10 Nucleated RBCs # 0.0 /100WBC 01/11/24 17:10 Sodium 138 mmol/L (136-145) 01/11/24 15:46 Potassium 3.7 mmol/L (3.5-5.1) 01/11/24 15:46 Chloride 95 mmol/L (98-107) L 01/11/24 15:46 Carbon Dioxide 26 mmol/L (22-29) 01/11/24 15:46 Anion Gap 20.7 (5-19) H 01/11/24 15:46 BUN 13 mg/dL (8-23) 01/11/24 15:46 Creatinine 0.6 mg/dL (0.5-0.9) 01/11/24 15:46 GFR Calculation Not Reportable 01/11/24 15:46 Glucose 162 mg/dL (65-115) H 01/11/24 15:46 Calculated Osmolality 290 mOsm/kg (285-295) 01/11/24 15:46 Calcium 9.8 mg/dL (8.5-10.5) 01/11/24 15:46 Total Bilirubin 0.5 mg/dL (0.15-1.2) 01/11/24 15:46 AST 20 U/L (0-32) 01/11/24 15:46 ALT 17 U/L (0-33) 01/11/24 15:46 Alkaline Phosphatase 134 U/L (35-105) H 01/11/24 15:46 Total Protein 8.6 g/dL (6.6-8.7) 01/11/24 15:46 Albumin 4.3 g/dL (3.5-5.2) 01/11/24 15:46 Globulin 4.3 g/dL (1.3-4.6) 01/11/24 15:46 All radiology interpretation(s) finalized by discharge Discharge Plan Discharge Patient Disposition: Home Clinical Impression: Fall, HTN (hypertension) with goal to be determined Condition: Stable Prescriptions: No Action (DME) Cam Walker See Rx Instructions .ROUTE .MEDSUPPLY Qty: 1 0RF Rx Instructions: As directed (DME) Lace up ankle brace See Rx Instructions .ROUTE .MEDSUPPLY Qty: 1 0RF Rx Instructions: As directed metformin 500 mg tablet 500 mg PO BID tizanidine 2 mg capsule 2 mg PO TID PRN (Reason: Muscle Spasm) ezetimibe 10 mg tablet 10 mg PO DAILY gabapentin 300 mg capsule 600 mg PO TID (DME) drop lock brace See Rx Instructions .Route .MEDSUPPLY Qty: 1 0RF Rx Instructions: As directed ropinirole 2 mg Tablet 2 mg PO DAILY benazepril 40 mg Tablet 40 mg PO DAILY duloxetine 60 mg capsule,delayed release(DR/EC) 60 mg PO DAILY atorvastatin 20 mg Tablet 20 mg PO DAILY atenolol 25 mg Tablet 25 mg PO DAILY amlodipine 5 mg Tablet 5 mg PO DAILY meloxicam 7.5 mg Tablet 15 mg PO DAILY famotidine 20 mg Tablet 20 mg PO BID hydrocodone-acetaminophen 7.5-325 mg Tablet 1 tab PO Q8H PRN (Reason: Pain) docusate sodium 100 mg Capsule 100 mg PO BID diclofenac sodium 75 mg Tablet,Delayed Release (Dr/Ec) 75 mg PO BID albuterol sulfate 90 mcg/actuation Hfa Aerosol Inhaler 2 puff INHALATION Q6H PRN (Reason: Shortness Of Breath) Eliquis 2.5 mg Tablet 2.5 mg PO BID Discharge Orders: Discharge ED (Routine); Ordered 01/11/24 Ordered By: Felix Camara Referrals: Kee Sanabria [Primary Care Provider] - Discharge Diet: Usual diet Discharge Activity: Resume usual activity Patient Instructions: Opioid Safety, Pain Management Activity Restrictions/Additional Instructions: Thank you for choosing [facility] for your healthcare needs today. It is very important that you follow up as instructed or that you return to the Emergency Department should you have concerns or if your condition changes or worsens in any way. You were seen after a fall. There is no evidence of acute fracture on any of the imaging done. Recommend following up with your primary care doctor he may benefit from evaluation for physical therapy. [place]'s Coding Level of Care Code ED Business Intelligence Engineer for Magdalena Fuentes
[2024-01-11 17:33] LABS: Basophils # 0.1 10^3/uL (0.0-0.1); Basophils % 0.4 %; Eosinophils # 0.1 10^3/uL (0.0-0.8); Eosinophils % 0.4 %; Hematocrit 47.9 % (36-47); Lymphocytes # 2.6 10^3/uL (0.8-4.8); Lymphocytes % 18.9 %; Mean Corpuscular HGB Conc 29.9 g/dL (30-55); Mean Corpuscular Hemoglobin 29.1 pg (27-33); Mean Corpuscular Volume 97.6 fl (85-98); Mean Platelet Volume 9.1 fL (7.4-10.4); Monocytes # 0.8 10^3/uL (0.2-0.9); Monocytes % 5.7 %; Neutrophils # 10.24 10^3/uL (1.8-7.7); Neutrophils % 74.1 %; Nucleated Red Blood Cells % 0 %; Platelet Count 383 10^3/cmm (157-399); Red Blood Count 4.91 10^6/uL (3.85-5.65); White Blood Count 13.84 10^3/uL (3.29-11.43)
[2024-01-11 19:12] VITALS: BP 157/110; PULSE 91; O2SAT 98
--- NOTE | 2024-01-11 19:29 | PC.NURSE ---
[employer] unable to pickup patient. Patient notified; patient attempting to call friends/family at this time to setup ride.
[2024-01-11 19:49] VITALS: PULSE 88; O2SAT 99
--- NOTE | 2024-01-11 19:54 | PC.NURSE ---
Patient states that her nephew will leaf size picker at ER entrance shortly.
[2024-01-11 20:41] VITALS: PULSE 91; O2SAT 95
== END 2024-01-11 20:43 | disposition home or self-care (01) ==
PROVIDERS: Emergency Provider Family Medicine; PCP Family Medicine
DX: I10 Essential (primary) hypertension (principal); Z79.01 Long term (current) use of anticoagulants; Z79.84 Long term (current) use of oral hypoglycemic drugs; E11.9 Type 2 diabetes mellitus without complications; W18.2XXA Fall in (into) shower or empty bathtub, initial encounter
CPT/HCPCS: 36415; 72040; 73502; 73562; 80053; 85025; 99284